=== PATIENT | female | born 1960 | race Caucasian/White ===

== ENCOUNTER → 2017-01-26 | Outpatient (CLI) | payer MEDICAID ==
--- NOTE | 2017-01-26 13:04 | RADIOLOGY REPORT (SQ) ---
EXAM DESCRIPTION: CERV SP 6 OR MORE COMPLETED DATE/TIME: 01/26/2017 11:07 am REASON FOR STUDY: CERVICALGIA COMPARISON: None. NUMBER OF VIEWS: Seven views. TECHNIQUE: AP, lateral, obliques, flexion, extension, and odontoid radiographic images acquired of t he cervical spine. LIMITATIONS: None. FINDINGS: MINERALIZATION: Normal. ALIGNMENT: Anatomic. FLEXION/EXTENSION: No instability. VERTEBRAE: Vertebral bodies of normal height. DISCS: There is mild anterior osteophyte formation at C4-5, and bulky anterior osteophyte formation a t C5-6 and C6-7. Mild C5-6 and C6-7 disc space loss of height. FORAMINA: No significant foraminal narrowing. Mild left-sided facet arthropathy at C7-T1. LATERAL AND POSTERIOR ELEMENTS: Facets, lateral masses, and spinous processes without significant fin dings. HARDWARE: None in the spine. SOFT TISSUES: No masses or calcifications. Lung apices clear. OTHER: No other significant finding. IMPRESSION: Mild degenerative disc changes without bony central or foraminal stenosis NO INSTABILITY ON FLEXION/EXTENSION. TECHNICAL DOCUMENTATION: JOB ID: [id number] [email or web address]- All Rights Reserved
== END ==
LOC: RAD 10:36
PROVIDERS: ATTEND Physician Assistant
DX: M54.2 Cervicalgia (principal)
CPT/HCPCS: 72050

== ENCOUNTER → 2017-04-07 | Outpatient (CLI) | payer MEDICAID ==
--- NOTE | 2017-04-07 11:26 | RADIOLOGY REPORT (SQ) ---
"EXAM DESCRIPTION: MRI CERVICAL SPINE WITHOUT COMPLETED DATE/TIME: 04/07/2017 9:15 am REASON FOR STUDY: CERVICALGIA M54.2 CERVICALGIA COMPARISON: Cervical spine plain films 01/26/2017 TECHNIQUE: Sagittal and Axial imaging includes T1, T2, STIR and gradient echo sequences. LIMITATIONS: None. FINDINGS: ALIGNMENT: Normal. VERTEBRAE: Intact. BONE MARROW: Normal. No marrow replacement or reactive changes. DISCS: Diffuse decreased T2 weighted intervertebral disc signal with mild disc space loss of height a t C4-5, C5-6, and C6-7 HARDWARE: None in the spine. CORD AND BASE OF BRAIN: Normal in size and signal intensity. SOFT TISSUES: No soft tissue masses. C1-C2: No significant spinal stenosis. C2-C3: No significant spinal stenosis or exit foraminal stenosis. C3-C4: No significant spinal stenosis or exit foraminal stenosis. C4-C5: No significant spinal stenosis or exit foraminal stenosis. C5-C6: No significant spinal stenosis or exit foraminal stenosis. C6-C7: No significant central stenosis or right foraminal narrowing. Mild left foraminal narrowing f rom facet and uncovertebral hypertrophy. C7-T1: No significant spinal stenosis or exit foraminal stenosis. UPPER THORACIC: Incompletely imaged. No significant spinal stenosis or exit foraminal stenosis. OTHER: No other significant finding. IMPRESSION: Mild degenerative disc changes. No high-grade central or foraminal encroachment. TECHNICAL DOCUMENTATION: JOB ID: [id number] [employer] | [employer]- All Rights Reserved"
== END ==
LOC: RAD 08:28
PROVIDERS: ATTEND Physician Assistant
DX: M54.2 Cervicalgia (principal); M47.892 Other spondylosis, cervical region
CPT/HCPCS: 72141

== ENCOUNTER → 2017-08-23 | Outpatient (CLI) | payer MEDICAID ==
--- NOTE | 2017-08-23 10:17 | WOMENS IMAGING REPORT ---
EXAM DESCRIPTION: BILAT SCREENING MAMMO W/CAD COMPLETED DATE/TIME: 08/23/2017 9:50 am REASON FOR STUDY: ROUTINE SCREENING; Z12.31 Z12.31 ENCNTR SCREEN MAMMOGRAM FOR MALIGNANT NEOPLASM O F KEARA COMPARISON: None. TECHNIQUE: Standard craniocaudal and mediolateral oblique views of each breast recorded using [place] l acquisition. LIMITATIONS: None. FINDINGS: Findings present which are benign by mammographic criteria. No suspicious masses, calcifi cations or architectural distortion. Pertinent benign findings: Benign calcifications. Read with the assistance of CAD. .[facility] - R2 Cenova Version 1.3 .[facility] - R2 Cenova Version 1.3 .[facility] - R2 Cenova Version 2.4 .[facility] [place] Cenova Version 2.4 .[facility] - R2 Health Information Provider Version 9.2 Benign mammographic findings may include one or more of the following: Smooth masses, popcorn/rim/co arse calcifications, asymmetries, post-procedure changes, and lesions with long-standing stability. IMPRESSION: BENIGN MAMMOGRAPHIC FINDINGS. BIRADS 2 BREAST DENSITY: a. The breasts are almost entirely fatty. BIRAD: 2 BENIGN FINDING(S) RECOMMENDATION: ROUTINE SCREENING COMMENT: The patient has been notified of the results by letter per SA requirements. Additional no tification policies are in place for contacting patient with suspicious or incomplete findings. Quality ID #225: The [employer] recommends an annual screening mammogram for women aged 40 years or over. This facility utilizes a reminder system to ensure that all patients receive reminder letters, and/or direct phone calls for appointments. This includes reminders for routine scr eening mammograms, diagnostic mammograms, or other Breast Imaging Interventions when appropriate. Th is patient will be placed in the appropriate reminder system. The [employer] ([employer]) has developed recommendations for screening MRI of the breast s in certain patient populations, to be used in conjunction with mammography. Breast MRI surveillanc e may be appropriate for women with more than 20% lifetime risk of developing breast cancer as deter mined by genetic testing, significant family history of the disease, or history of mantle radiation f or Hodgkins Disease. ACR Practice Guidelines 2008. TECHNICAL DOCUMENTATION: FINDING NUMBER: (1) ASSESSMENT: (1) JOB ID: [id number] [employer]- All Rights Reserved
== END ==
LOC: WI 09:21
PROVIDERS: ATTEND Physician Assistant
DX: Z12.31 Encounter for screening mammogram for malignant neoplasm of breast (principal)
CPT/HCPCS: 77067

== ENCOUNTER → 2017-09-01 | Outpatient (CLI) | payer MEDICAID ==
--- NOTE | 2017-09-01 16:20 | RADIOLOGY REPORT (SQ) ---
EXAM DESCRIPTION: HIP LEFT AP/LATERAL COMPLETED DATE/TIME: 09/01/2017 4:03 pm REASON FOR STUDY: M25.552 PAIN IN LEFT HIP M25.552 PAIN IN LEFT HIP COMPARISON: None. NUMBER OF VIEWS: Two views. TECHNIQUE: AP pelvis and additional frog-leg view of the left hip. LIMITATIONS: None. FINDINGS: MINERALIZATION: Normal. LEFT HIP: No fracture or dislocation. No worrisome bone lesions. No significant joint space narrowi ng. Mild bony spurring RIGHT HIP: No fracture or dislocation. No worrisome bone lesions. No significant joint space narrow ing or bony spurring PUBIS AND ISCHIUM: No fracture. PELVIS: No fracture. SACRUM: No fracture or dislocation. Mild right SI joint sclerosis. LOWER LUMBAR SPINE: Lower lumbar disc space narrowing at L4-5 and L5-S1 SOFT TISSUES: Surgical clips in the pelvis OTHER: No other significant finding. IMPRESSION: No acute fracture or malalignment. Mild left hip joint bony spurring. Right SI joint s clerosis TECHNICAL DOCUMENTATION: JOB ID: [id number] [employer]- All Rights Reserved
== END ==
LOC: RAD 15:45
DX: M25.552 Pain in left hip (principal); M76.9 Unspecified enthesopathy, lower limb, excluding foot

== ENCOUNTER → 2017-10-25 | Outpatient (CLI) | payer MEDICAID ==
--- NOTE | 2017-10-25 15:13 | RADIOLOGY REPORT (SQ) ---
EXAM DESCRIPTION: L SPINE FLEX/EXT ONLY; L SPINE 2 VIEWS COMPLETED DATE/TIME: 10/25/2017 2:38 pm REASON FOR STUDY: LOW BACK PAIN; LOW BACK PAIN M54.5 LOW BACK PAIN M54.2 CERVICALGIA COMPARISON: Lumbar spine films 03/01/2015, 03/31/2016 NUMBER OF VIEWS: AP and lateral lumbar spine films Lumbar flexion and extension lateral films TECHNIQUE: AP and lateral lumbar spine films Lumbar flexion and extension lateral films LIMITATIONS: None. FINDINGS: MINERALIZATION: Normal. SEGMENTATION: Normal. No transitional anatomy. ALIGNMENT: Normal. FLEXION/EXTENSION: No instability. VERTEBRAE: Maintained height. No fracture or worrisome bone lesion. DISCS: Moderate to high-grade disc space loss of height at L4-5 and L5-S1. POSTERIOR ELEMENTS: Pedicles and facets are intact. No pars defect or posterior arch defects. Mild bilateral facet arthropathy at L4-5 and L5-S1 HARDWARE: None in the spine. OTHER: No other significant finding. IMPRESSION: No instability on flexion/extension Disc space loss of height at L4-5 and L5-S1 TECHNICAL DOCUMENTATION: JOB ID: [id number]- All Rights Reserved Reading location - IP/workstation name: [email or web address]
--- NOTE | 2017-10-25 15:13 | RADIOLOGY REPORT (SQ) ---
EXAM DESCRIPTION: L SPINE FLEX/EXT ONLY; L SPINE 2 VIEWS COMPLETED DATE/TIME: 10/25/2017 2:38 pm REASON FOR STUDY: LOW BACK PAIN; LOW BACK PAIN M54.5 LOW BACK PAIN M54.2 CERVICALGIA COMPARISON: Lumbar spine films 03/01/2015, 03/31/2016 NUMBER OF VIEWS: AP and lateral lumbar spine films Lumbar flexion and extension lateral films TECHNIQUE: AP and lateral lumbar spine films Lumbar flexion and extension lateral films LIMITATIONS: None. FINDINGS: MINERALIZATION: Normal. SEGMENTATION: Normal. No transitional anatomy. ALIGNMENT: Normal. FLEXION/EXTENSION: No instability. VERTEBRAE: Maintained height. No fracture or worrisome bone lesion. DISCS: Moderate to high-grade disc space loss of height at L4-5 and L5-S1. POSTERIOR ELEMENTS: Pedicles and facets are intact. No pars defect or posterior arch defects. Mild bilateral facet arthropathy at L4-5 and L5-S1 HARDWARE: None in the spine. OTHER: No other significant finding. IMPRESSION: No instability on flexion/extension Disc space loss of height at L4-5 and L5-S1 TECHNICAL DOCUMENTATION: JOB ID: [id number]- All Rights Reserved Reading location - IP/workstation name: [email or web address]
--- NOTE | 2017-10-25 15:14 | RADIOLOGY REPORT (SQ) ---
EXAM DESCRIPTION: CERV SP 4 OR 5 VIEWS COMPLETED DATE/TIME: 10/25/2017 2:38 pm REASON FOR STUDY: CERVICALGIA COMPARISON: 01/26/2017 TECHNIQUE: 6 views. Lateral views neutral, flexion and extension, swimmer's lateral, AP and odontoi d. LIMITATIONS: None. FINDINGS: There is disc space narrowing and osteophyte formation C5-6 and C6-7. Alignment is anatom ic. No instability with flexion and extension. IMPRESSION: Cervical disc disease. No instability. TECHNICAL DOCUMENTATION: JOB ID: [id number] [employer]- All Rights Reserved Reading location - IP/workstation name: [email or web address]
== END ==
LOC: RAD 14:04
PROVIDERS: ATTEND Physician Assistant
DX: M54.5 Low back pain (principal); M54.2 Cervicalgia
CPT/HCPCS: 72050; 72100; 72120

== ENCOUNTER 2017-11-07 21:47 | Emergency (ER) | payer MEDICAID ==
[2017-11-07 22:41] LABS: ABSOLUTE BASOPHILS # (AUTO) 0.1 10^3/uL (0.0-0.2); ABSOLUTE EOSINOPHILS # (AUTO) 0.1 10^3/uL (0.0-0.6); ABSOLUTE LYMPHOCYTES (AUTO) 5.9 10^3/uL (0.5-4.7); ABSOLUTE MONOCYTES (AUTO) 1.4 10^3/uL (0.1-1.4); ABSOLUTE NEUT (AUTO) 5.7 10^3/uL (1.7-8.2); BASOPHILS % (AUTO) 0.9 % (0-2); EOSINOPHILS % (AUTO) 0.9 % (0-6); HEMATOCRIT 43.4 % (36.0-47.0); HEMOGLOBIN 14.6 g/dL (12.0-15.5); LYMPHOCYTES % (AUTO) 44.5 % (13-45); MEAN CORPUSCULAR HEMOGLOBIN 32.1 pg (27.0-33.4); MEAN CORPUSCULAR HGB CONC 33.7 g/dL (32.0-36.0); MEAN CORPUSCULAR VOLUME 95 fl (80-97); MONOCYTES % (AUTO) 10.6 % (3-13); PLATELET COUNT 219 10^3/uL (150-450); RED BLOOD COUNT 4.55 10^6/uL (3.72-5.28); RED CELL DISTRIBUTION WIDTH 14.6 % (11.5-14.0); SEGMENTED NEUTROPHILS % (AUTO) 43.1 % (42-78); TOTAL CELLS COUNTED % (AUTO) 100 %; WHITE BLOOD COUNT 13.2 10^3/uL (4.0-10.5)
--- NOTE | 2017-11-07 22:58 | ER Document Report ---
ED GI/ - General Chief Complaint: Abdominal Pain Stated Complaint: ABDOMINAL PAIN Time Seen by Provider: 11/07/17 22:54 Mode of Arrival: Ambulatory Information source: Patient Notes: History of present illness-57 years old female had a cholecystectomy, with a long scar in the right upper quadrant. Last 2 days she noted some bulging and numbness and pain on and off. Therefore concerned and came to the ED. No nausea vomiting diarrhea denies any fever chills or other constitutional symptoms. REVIEW OF SYSTEMS: CONSTITUTIONAL : Denies fever, chills, or sweats. Denies recent illness. EENT: Denies eye, ear, throat, or mouth pain or symptoms. Denies nasal or sinus congestion or discharge. Denies throat, tongue, or mouth swelling or difficulty swallowing. CARDIOVASCULAR: Denies chest pain. Denies palpitations or racing or irregular heart beat. Denies ankle edema. RESPIRATORY: Denies cough, cold, or chest congestion. Denies shortness of breath, difficulty breathing, or wheezing. GASTROINTESTINAL: Denies abdominal pain or distention. Denies nausea, vomiting , or diarrhea. Denies blood in vomitus, stools, or per rectum. Denies black, tarry stools. Denies constipation. GENITOURINARY: Denies difficulty urinating, painful urination, burning, frequency, blood in urine, or discharge. FEMALE GENITOURINARY: Denies vaginal bleeding, heavy or abnormal periods, irregular periods. Denies vaginal discharge or odor. MUSCULOSKELETAL: Denies back or neck pain or stiffness. Denies joint pain or swelling. SKIN: Denies rash, lesions or sores. HEMATOLOGIC : Denies easy bruising or bleeding. LYMPHATIC: Denies swollen, enlarged glands. NEUROLOGICAL: Denies confusion or altered mental status. Denies passing out or loss of consciousness. Denies dizziness or lightheadedness. Denies headache. Denies weakness or paralysis or loss of use of either side. Denies problems with gait or speech. Denies sensory loss, numbness, or tingling. Denies seizures. PSYCHIATRIC: Denies anxiety or stress. Denies depression, suicidal ideation, or homicidal ideation. ALL OTHER SYSTEMS REVIEWED AND NEGATIVE. PHYSICAL EXAMINATION: GENERAL: Well-appearing, well-nourished and in no acute distress. Obese HEAD: Atraumatic, normocephalic. EYES: Pupils equal round and reactive to light, extraocular movements intact, conjunctiva are normal. ENT: Nares patent, oropharynx clear without exudates. Moist mucous membranes. NECK: Normal range of motion, supple without lymphadenopathy LUNGS: Breath sounds clear to auscultation bilaterally and equal. No wheezes rales or rhonchi. HEART: Regular rate and rhythm without murmurs ABDOMEN: Soft, right upper quadrant bleeding along scar noted, about this, slight bulging noted. Which is tender, and also a bulging mass on coughing. Abdomen. No guarding, no rebound. No masses appreciated. Female : deferred Musculoskeletal: Normal range of motion, no pitting or edema. No cyanosis. NEUROLOGICAL: Cranial nerves grossly intact. Normal speech, normal gait. Normal sensory, motor exams PSYCH: Normal mood, normal affect. SKIN: Warm, Dry, normal turgor, no rashes or lesions noted. Dictation was performed using [employer] voice recognition software TRAVEL OUTSIDE OF THE [place] IN LAST 30 DAYS: No - HPI Patient complains to provider of: Abdominal pain Onset: Just prior to arrival Timing/Duration: Gradual Severity at maximum: Moderate Severity in ED: Moderate Pain Level: 3 - Related Data Allergies/Adverse Reactions: No Known Allergies Allergy (Unverified 08/20/14 19:51) Past Medical History - General Information source: Patient - Social History Smoking Status: Former Smoker Cigarette use (# per day): No Chew tobacco use (# tins/day): No Smoking Education Provided: No Frequency of alcohol use: Rare Drug Abuse: None Family History: Reviewed & Not Pertinent Musculoskeltal Medical History: Reports Hx Arthritis Past Surgical History: Reports: Hx Abdominal Surgery, Hx Gynecologic Surgery, Hx Orthopedic Surgery - Immunizations Immunizations up to date: Yes Hx Diphtheria, Pertussis, Tetanus Vaccination: No Review of Systems - Review of Systems Notes: As per history of complain Physical Exam - Vital signs Vitals: Temp Pulse Resp BP Pulse Ox 98.3 F 94 20 112/70 95 11/07/17 21:55 11/07/17 21:55 11/07/17 21:55 11/07/17 21:55 11/07/17 21:55 Course - Re-evaluation Re-evalutation: 11/08/17 01:02 Patient has nausea for which Zofran was given. Her lab reports were explained to as well as CT chest x-ray - Vital Signs Vital signs: Temp Pulse Resp BP Pulse Ox 98.3 F 94 20 112/70 95 11/07/17 21:55 11/07/17 21:55 11/07/17 21:55 11/07/17 21:55 11/07/17 21:55 - Laboratory Result Diagrams: 11/07/17 22:20 11/07/17 22:22 Laboratory results interpreted by me: 11/07/17 22:20 WBC 13.2 H RDW 14.6 H Absolute Lymphocytes 5.9 H - Diagnostic Test Radiology reviewed: Reports reviewed - CT of the abdomen pelvis came back normal. reported by radiologist chest x-ray unremarkable reported by radiologist Discharge - Discharge Clinical Impression: Abdominal pain Qualifiers: Abdominal location: right upper quadrant Qualified Code(s): R10.11 - Right upper quadrant pain Incisional hernia Qualifiers: Obstruction and gangrene presence: without obstruction or gangrene Qualified Code(s): K43.2 - Incisional hernia without obstruction or gangrene; K43.91 - Incisional hernia, without obstruction or gangrene Condition: Fair Disposition: HOME, SELF-CARE Instructions: Abdominal Pain ([facility]), Hernia ([facility]) Prescriptions: Hydrocodone/Acetaminophen [Vicodin 5-300 mg Tablet] 1 - 2 tab PO ASDIR PRN #15 tab PRN Reason: Ondansetron [Zofran Odt] 4 mg PO TID #14 tab.racheal
[2017-11-07 23:00] LABS: ALANINE AMINOTRANSFERASE 38 U/L (9-52); ALBUMIN 4.3 g/dL (3.5-5.0); ALKALINE PHOSPHATASE 57 U/L (38-126); ANION GAP 12 (5-19); ASPARTATE AMINO TRANSFERASE 34 U/L (14-36); BILIRUBIN,DIRECT 0.1 mg/dL (0.0-0.4); BILIRUBIN,TOTAL 0.2 mg/dL (0.2-1.3); BLOOD UREA NITROGEN 13 mg/dL (7-20); CALCIUM 9.2 mg/dL (8.4-10.2); CARBON DIOXIDE 27 mmol/L (22-30); CHLORIDE 105 mmol/L (98-107); GLUCOSE 100 mg/dL (75-110); LIPASE 78.7 U/L (23-300); POTASSIUM 3.8 mmol/L (3.6-5.0); SODIUM 143.8 mmol/L (137-145); TOTAL PROTEIN 6.8 g/dL (6.3-8.2)
--- NOTE | 2017-11-07 23:07 | RADIOLOGY REPORT (SQ) ---
EXAM DESCRIPTION: CHEST 2 VIEWS CLINICAL HISTORY: 57 years Female, epigastric pain COMPARISON: CT 12.8.16 NUMBER OF VIEWS/TECHNIQUE: 2, PA and Lateral LIMITATIONS: None. FINDINGS: Normal lung volume. Clear parenchyma. Prominent interstitium. Normal cardiac silhouette. Intact bony thorax. IMPRESSION: No acute cardiopulmonary findings.
--- NOTE | 2017-11-08 00:54 | RADIOLOGY REPORT (SQ) ---
EXAM DESCRIPTION: CT ABD/PELVIS WITH IV ONLY CLINICAL HISTORY: 57 years Female, Abdominal pain/right upper quadrant hernia COMPARISON: None. TECHNIQUE: IV contrast. Coronal and sagittal reformat. This exam was performed according to our departmental dose-optimization program, which includes automated exposure control, adjustment of the mA and/or kV according to patient size and/or use of iterative reconstruction technique. FINDINGS: No acute findings. No free fluid. Pelvic clips. Moderate hepatic steatosis. Small bilateral likely benign renal cysts. 0.2 cm degenerative L5 retrolisthesis. Gallbladder and appendix are surgically absent. Small retained fluid in the right colon suggests nonspecific malabsorption. Inferior thorax, liver, pancreas, spleen, adrenals, renal system, gastrointestinal tract, pelvic organs, lymphatics, vasculature, and musculoskeleton appear otherwise unremarkable. IMPRESSION: No acute findings.
[2017-11-08] MEDS ORDERED: ONDANSETRON ODT 4 MG TAB (6 TAB/ER DISP) PO PRN (00:58)
[2017-11-08 01:36] VITALS: BP 132/75
== END 2017-11-08 01:33 | disposition home or self-care (01) ==
LOC: ER 21:47
DX: K43.2 Incisional hernia without obstruction or gangrene (principal); R10.11 Right upper quadrant pain; R20.0 Anesthesia of skin; R11.0 Nausea; Z90.49 Acquired absence of other specified parts of digestive tract
CPT/HCPCS: 36415; 71046; 74177; 80053; 83690; 85025; 99284

== ENCOUNTER 2017-12-01 21:52 | Emergency (ER) | payer MEDICAID ==
[2017-12-01 23:00] LABS: ABSOLUTE BASOPHILS # (AUTO) 0.1 10^3/uL (0.0-0.2); ABSOLUTE EOSINOPHILS # (AUTO) 0.1 10^3/uL (0.0-0.6); ABSOLUTE LYMPHOCYTES (AUTO) 5.7 10^3/uL (0.5-4.7); ABSOLUTE MONOCYTES (AUTO) 1.2 10^3/uL (0.1-1.4); ABSOLUTE NEUT (AUTO) 6.7 10^3/uL (1.7-8.2); BASOPHILS % (AUTO) 0.9 % (0-2); EOSINOPHILS % (AUTO) 0.6 % (0-6); HEMOGLOBIN 14.5 g/dL (12.0-15.5); LYMPHOCYTES % (AUTO) 41.4 % (13-45); MEAN CORPUSCULAR HEMOGLOBIN 33.1 pg (27.0-33.4); MEAN CORPUSCULAR HGB CONC 34.4 g/dL (32.0-36.0); MEAN CORPUSCULAR VOLUME 96 fl (80-97); MONOCYTES % (AUTO) 8.5 % (3-13); PLATELET COUNT 191 10^3/uL (150-450); RED BLOOD COUNT 4.38 10^6/uL (3.72-5.28); RED CELL DISTRIBUTION WIDTH 14.3 % (11.5-14.0); SEGMENTED NEUTROPHILS % (AUTO) 48.6 % (42-78); TOTAL CELLS COUNTED % (AUTO) 100 %; WHITE BLOOD COUNT 13.8 10^3/uL (4.0-10.5)
[2017-12-01 23:16] LABS: ALANINE AMINOTRANSFERASE 29 U/L (9-52); ALBUMIN 4.2 g/dL (3.5-5.0); ALKALINE PHOSPHATASE 63 U/L (38-126); ANION GAP 11 (5-19); ASPARTATE AMINO TRANSFERASE 23 U/L (14-36); BILIRUBIN,DIRECT 0.2 mg/dL (0.0-0.4); BILIRUBIN,TOTAL 0.2 mg/dL (0.2-1.3); BLOOD UREA NITROGEN 12 mg/dL (7-20); CALCIUM 9.3 mg/dL (8.4-10.2); CARBON DIOXIDE 27 mmol/L (22-30); CHLORIDE 104 mmol/L (98-107); GLUCOSE 87 mg/dL (75-110); LIPASE 89.8 U/L (23-300); POTASSIUM 3.9 mmol/L (3.6-5.0); SODIUM 142.1 mmol/L (137-145); TOTAL PROTEIN 6.9 g/dL (6.3-8.2)
[2017-12-01] MEDS ORDERED: KETOROLAC TROMETHAMINE INJ/PF 30 MG/1 ML SDV IV ONE (23:21)
[2017-12-01] MEDS ORDERED: ACETAMINOPHEN 325 MG TABLET PO ONE (23:21)
[2017-12-01] MEDS ORDERED: LIDOCAINE 5% (700 MG) TRANSDERMAL ADH..PATCH TP ONE (23:21)
--- NOTE | 2017-12-01 23:25 | ER Document Report ---
ED General - General Chief Complaint: Abdominal Pain Stated Complaint: FLANK PAIN Time Seen by Provider: 12/01/17 22:39 Notes: Patient is a 57-year-old female who presents with right lower rib pain for the past 2-3 weeks. Patient states that this started after she fell into a dehumidifier to 3 weeks ago. She states that initially she thought her ribs were simply "bruised" as she had a dull, throbbing, constant pain worsened by movement, breathing and coughing. She does state that she became concerned when the pain has failed to improve and seems to perhaps even gotten worse. She has been trying ibuprofen with minimal to no improvement of the pain. She states that it continues to be exacerbated by movement and breathing. She denies any history of similar symptoms in the past. She has not seen her primary doctor regarding today's concerns. She denies any shortness of breath, hemoptysis, focal abdominal pain, or any other additional symptoms. She is status post cholecystectomy. She has not noted any rash. TRAVEL OUTSIDE OF THE [place] IN LAST 30 DAYS: No - Related Data Allergies/Adverse Reactions: No Known Allergies Allergy (Unverified 08/20/14 19:51) Past Medical History - General Information source: Patient - Social History Smoking Status: Never Smoker Frequency of alcohol use: None Drug Abuse: None Lives with: Family Family History: Reviewed & Not Pertinent Patient has suicidal ideation: No Patient has homicidal ideation: No Renal/ Medical History: Denies: Hx Peritoneal Dialysis Musculoskeltal Medical History: Reports Hx Arthritis Past Surgical History: Reports: Hx Abdominal Surgery, Hx Gynecologic Surgery, Hx Orthopedic Surgery - Immunizations Immunizations up to date: Yes Hx Diphtheria, Pertussis, Tetanus Vaccination: No Review of Systems - Review of Systems Notes: Constitutional: Negative for fever. HENT: Negative for sore throat. Eyes: Negative for visual changes. Cardiovascular: Negative for chest pain. Respiratory: Negative for shortness of breath. Gastrointestinal: Negative for abdominal pain, vomiting or diarrhea. Genitourinary: Negative for dysuria. Musculoskeletal: Positive for right lower rib pain and chest wall pain Skin: Negative for rash. Neurological: Negative for headaches, weakness or numbness. 10 point ROS negative except as marked above and in HPI. Physical Exam - Vital signs Vitals: Temp Pulse Resp BP Pulse Ox 98.8 F 94 18 129/76 H 97 12/01/17 22:00 12/01/17 22:00 12/01/17 22:00 12/01/17 22:00 12/01/17 22:00 Interpretation: Normal Notes: PHYSICAL EXAMINATION: GENERAL: Well-appearing, well-nourished and in no acute distress. HEAD: Atraumatic, normocephalic. EYES: Pupils equal round and reactive to light, extraocular movements intact, sclera anicteric, conjunctiva are normal. ENT: nares patent, oropharynx clear without exudates. Moist mucous membranes. NECK: Normal range of motion, supple without lymphadenopathy LUNGS: Breath sounds clear to auscultation bilaterally and equal. No wheezes rales or rhonchi. HEART: Regular rate and rhythm without murmurs Chest wall: Pain on palpation of the right lower ribs. ABDOMEN: Soft, nontender, normoactive bowel sounds. No guarding, no rebound. No masses appreciated. EXTREMITIES: Normal range of motion, no pitting or edema. No cyanosis. NEUROLOGICAL: No focal neurological deficits. Moves all extremities spontaneously and on command. PSYCH: Normal mood, normal affect. SKIN: Warm, Dry, normal turgor, no rashes or lesions noted. Course - Re-evaluation Re-evalutation: 12/01/17 23:23 Patient presents after falling onto their ribs, complaining of focal pain to the affected area. Patient did hit the area approximately 2 weeks ago and has been having pain since that time. No tachypnea or hypoxemia at time of arrival. Pain controlled here in the emergency department. Chest x-ray without evidence of acute fracture, pneumothorax or pulmonary contusion. Labs unremarkable. There is no focal abdominal pain to suggest intra-abdominal pathology and patient is postcholecystectomy from quite some time ago. Patient has been having symptoms for over 2 weeks and I do not suspect that this would be an initial presentation of herpes zoster. At this time will discharge with return precautions and follow-up recommendations. Verbal discharge instructions given at the bedside and opportunity for questions given. Medication warnings reviewed. Patient is in agreement with this plan and has verbalized understanding of return precautions and the need for primary care follow-up in the next 24-72 hours. - Vital Signs Vital signs: Temp Pulse Resp BP Pulse Ox 98.3 F 73 17 122/71 98 12/02/17 00:44 12/02/17 00:44 12/02/17 00:44 12/02/17 00:44 12/02/17 00:44 - Laboratory Result Diagrams: 12/01/17 22:52 12/01/17 22:52 Laboratory results interpreted by me: 12/01/17 12/01/17 22:52 23:40 WBC 13.8 H RDW 14.3 H Absolute Lymphocytes 5.7 H Urine Blood MODERATE H Urine Urobilinogen 2.0 H - Diagnostic Test Radiology reviewed: Image reviewed, Reports reviewed Radiology results interpreted by me: 12/02/17 03:36 Chest x-ray: No acute infiltrate or fractures. Discharge - Discharge Clinical Impression: Right sided abdominal pain, Rib pain on right side Condition: Good Disposition: HOME, SELF-CARE Additional Instructions: Your chest wall pain is due to bruising of your ribs. This pain can last for up to 6 weeks. It is very important that you continue to take purposeful deep breaths. For your pain: Continue to take ibuprofen 600 mg every 6 hours or Tylenol 1000 mg every 6 hours. Apply local lidocaine to the area per bottle instructions. There is a product sold [id number] called "Aspercreme with lidocaine" that you can use for this purpose. Please follow-up with her primary care doctor in the next 2-3 days. Return to the emergency department immediately if you develop worsening shortness of breath, increased pain, begin coughing blood, pass out, or have any other symptoms that are worrisome to you. Prescriptions: Cyclobenzaprine HCl [Flexeril 10 mg Tablet] 10 mg PO QHS PRN #15 tablet PRN Reason: Referrals: CAYETANO ESPINOSA PA-C [Primary Care Provider] - Follow up as needed
--- NOTE | 2017-12-02 00:01 | RADIOLOGY REPORT (SQ) ---
EXAM DESCRIPTION: CHEST 2 VIEWS COMPLETED DATE/TIME: 12/01/2017 11:37 pm REASON FOR STUDY: right lower rib pain COMPARISON: 11/07/2017 EXAM PARAMETERS: NUMBER OF VIEWS: two views TECHNIQUE: Digital Frontal and Lateral radiographic views of the chest acquired. RADIATION DOSE: NA LIMITATIONS: none FINDINGS: LUNGS AND PLEURA: No acute opacities, masses or pneumothorax. No pleural effusion. MEDIASTINUM AND HILAR STRUCTURES: No masses or contour abnormalities. HEART AND VASCULAR STRUCTURES: Heart normal size. No evidence for failure. BONES: No acute findings. HARDWARE: None in the chest. OTHER: No other significant finding. IMPRESSION: NO ACUTE RADIOGRAPHIC FINDING IN THE CHEST. TECHNICAL DOCUMENTATION: JOB ID: [id number] 2010 [email or web address]- All Rights Reserved Reading location - IP/workstation name: [email or web address]
[2017-12-02 00:23] LABS: APPEARANCE,URINE SLIGHTLY-CLOUDY; BILIRUBIN,URINE NEGATIVE (NEGATIVE); COLOR,URINE YELLOW; GLUCOSE, URINE NEGATIVE (NEGATIVE); KETONES,URINE NEGATIVE (NEGATIVE); LEUKOCYTE ESTERASE,URINE NEGATIVE (NEGATIVE); NITRITE,URINE NEGATIVE (NEGATIVE); PROTEIN,URINE NEGATIVE (NEGATIVE)
[2017-12-02 00:45] VITALS: BP 122/71
== END 2017-12-02 00:45 | disposition home or self-care (01) ==
LOC: ER 21:52
DX: R07.81 Pleurodynia (principal); R10.9 Unspecified abdominal pain; W19.XXXA Unspecified fall, initial encounter; Z90.49 Acquired absence of other specified parts of digestive tract
CPT/HCPCS: 99284; 96374; 36415; 83690; 85025; 80053; 81001; 71046; J3490 ×2; J1885

== ENCOUNTER → 2018-09-12 | Outpatient (CLI) | payer MEDICAID ==
[2018-09-12 10:47] LABS: ABSOLUTE BASOPHILS # (AUTO) 0.1 10^3/uL (0.0-0.2); ABSOLUTE EOSINOPHILS # (AUTO) 0.1 10^3/uL (0.0-0.6); ABSOLUTE LYMPHOCYTES (AUTO) 4.3 10^3/uL (0.5-4.7); ABSOLUTE MONOCYTES (AUTO) 1.4 10^3/uL (0.1-1.4); BASOPHILS % (AUTO) 0.7 % (0-2); EOSINOPHILS % (AUTO) 0.5 % (0-6); HEMATOCRIT 42.7 % (36.0-47.0); HEMOGLOBIN 15.1 g/dL (12.0-15.5); LYMPHOCYTES % (AUTO) 27.2 % (13-45); MEAN CORPUSCULAR HEMOGLOBIN 32.7 pg (27.0-33.4); MEAN CORPUSCULAR HGB CONC 35.3 g/dL (32.0-36.0); MEAN CORPUSCULAR VOLUME 93 fl (80-97); MONOCYTES % (AUTO) 9.1 % (3-13); PLATELET COUNT 213 10^3/uL (150-450); RED BLOOD COUNT 4.61 10^6/uL (3.72-5.28); RED CELL DISTRIBUTION WIDTH 13.9 % (11.5-14.0); SEGMENTED NEUTROPHILS % (AUTO) 62.5 % (42-78); TOTAL CELLS COUNTED % (AUTO) 100 %
[2018-09-12 11:03] LABS: ALANINE AMINOTRANSFERASE 15 U/L (9-52); ALBUMIN 4.3 g/dL (3.5-5.0); ALKALINE PHOSPHATASE 82 U/L (38-126); ANION GAP 10 (5-19); ASPARTATE AMINO TRANSFERASE 11 U/L (14-36); BLOOD UREA NITROGEN 17 mg/dL (7-20); CALCIUM 9.2 mg/dL (8.4-10.2); CARBON DIOXIDE 28 mmol/L (22-30); CHLORIDE 105 mmol/L (98-107); GLUCOSE 100 mg/dL (75-110); POTASSIUM 4.3 mmol/L (3.6-5.0); SODIUM 143.2 mmol/L (137-145)
[2018-09-12 11:04] LABS: BILIRUBIN,DIRECT 0.1 mg/dL (0.0-0.4); BILIRUBIN,TOTAL 0.2 mg/dL (0.2-1.3); CHOLESTEROL 190.63 mg/dL (0-200); TOTAL PROTEIN 6.6 g/dL (6.3-8.2); TRIGLYCERIDES 159 mg/dL (<150)
[2018-09-12 11:14] LABS: DIRECT LDL 129 mg/dL (<100)
[2018-09-12 11:16] LABS: VLDL CHOLESTEROL 31.8 mg/dL (10-31)
== END ==
LOC: OD 09:46
PROVIDERS: ATTEND Nurse Practitioner Psychiatric/Mental Health
DX: F31.2 Bipolar disorder, current episode manic severe with psychotic features (principal)
CPT/HCPCS: 36415; 80053; 80061; 80164; 84443; 85025

== ENCOUNTER → 2018-10-17 | Outpatient (CLI) | payer MEDICAID ==
--- NOTE | 2018-10-17 15:47 | RADIOLOGY REPORT (SQ) ---
EXAM DESCRIPTION: CHEST 2 VIEWS COMPLETED DATE/TIME: 10/17/2018 3:30 pm REASON FOR STUDY: R05 COUGH COMPARISON: 12/01/2017 EXAM PARAMETERS: NUMBER OF VIEWS: two views TECHNIQUE: Digital Frontal and Lateral radiographic views of the chest acquired. RADIATION DOSE: NA LIMITATIONS: none FINDINGS: LUNGS AND PLEURA: There is prominence of interstitial markings bilaterally. This is sligh tly increased when compared to prior study. This may represent chronic interstitial lung disease. S uperimposed interstitial pneumonitis or edema cannot be excluded. No pleural effusions. No pneumoth orax. MEDIASTINUM AND HILAR STRUCTURES: No masses or contour abnormalities. HEART AND VASCULAR STRUCTURES: Heart normal size. No evidence for failure. BONES: No acute findings. HARDWARE: None in the chest. OTHER: No other significant finding. IMPRESSION: Progression of bilateral interstitial airspace disease as described. Differential inclu yazmin progression of interstitial lung disease, superimposed interstitial pneumonitis or congestion. TECHNICAL DOCUMENTATION: JOB ID: [id number] [employer]- All Rights Reserved Reading location - IP/workstation name: [email or web address]
== END ==
LOC: RAD 15:15
PROVIDERS: ATTEND Physician Assistant
DX: J98.4 Other disorders of lung (principal); R05 Cough
CPT/HCPCS: 71046

== ENCOUNTER → 2018-11-28 | Outpatient (CLI) | payer MEDICAID ==
--- NOTE | 2018-11-28 13:36 | RADIOLOGY REPORT (SQ) ---
EXAM DESCRIPTION: CT CHEST WITHOUT COMPLETED DATE/TIME: 11/28/2018 1:15 pm REASON FOR STUDY: COUGH (R05) R05 COUGH COMPARISON: 07/07/2016 TECHNIQUE: CT scan performed of the chest without intravenous contrast. Images reviewed with lung, soft tissue and bone windows. Reconstructed coronal and sagittal MPR images reviewed. All images st ored on PACS. All CT scanners at this facility use dose modulation, iterative reconstruction, and/or weight based d osing when appropriate to reduce radiation dose to as low as reasonably achievable (ALARA). [facility]: Dose Right [facility]: CareDose [facility]: Dose Right [facility]: Teradose 4D [facility]: [employer] RADIATION DOSE: CT Rad equipment meets quality standard of care and radiation dose reduction techniq ues were employed. CTDIvol: 12.1 mGy. DLP: 427 mGy-cm. mGy. LIMITATIONS: No technical limitations. FINDINGS: LUNGS AND PLEURA: Mild centrilobular and paraseptal emphysematous changes. Mild pleural/ parenchymal scarring on the right once again. No pulmonary mass or infiltrate. No pleural effusion. HILAR AND MEDIASTINAL STRUCTURES: There are multiple small, generally subcentimeter mediastinal nodes . No significant hilar adenopathy. HEART AND VASCULAR STRUCTURES: No aneurysm. No pericardial effusion. UPPER ABDOMEN: No significant findings. Limited exam. THYROID AND OTHER SOFT TISSUES: No masses. No adenopathy. 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 A developmental finding. HARDWARE: None in the chest. OTHER: No other significant findings. IMPRESSION: Chronic emphysematous changes mild stable pleural/ parenchymal scarring. No acute findi ngs in the chest. Osseous findings as described. TECHNICAL DOCUMENTATION: JOB ID: [id number] Quality ID # [id number]: Final reports with documentation of one or more dose reduction techniques (e.g., Au tomated exposure control, adjustment of the mA and/or kV according to patient size, use of iterative reconstruction technique) 2010 [employer]- All Rights Reserved Reading location - IP/workstation name: [email or web address]
== END ==
LOC: RAD 13:00
PROVIDERS: ATTEND Physician Assistant
DX: R05 Cough (principal)
CPT/HCPCS: 71250

== ENCOUNTER 2019-04-27 14:31 | Emergency (ER) | payer MEDICAID ==
[2019-04-27 14:41] VITALS: BP 135/79
[2019-04-27] MEDS ORDERED: IBUPROFEN 800 MG TABLET PO ONE (15:32)
--- NOTE | 2019-04-27 15:34 | ER Document Report ---
ED Medical Screen (RME) - General Chief Complaint: Hand Pain Stated Complaint: HAND PAIN Time Seen by Provider: 04/27/19 15:32 Primary Care Provider: CAYETANO ESPINOSA PA-C [Primary Care Provider] - Follow up as needed Information source: Patient Notes: Patient presents complaining of left hand pain worse to the left thumb. Patient is left-hand dominant. Patient denies any known injury. Patient reports distant history of carpal tunnel repair involving wrist of left hand. I have greeted and performed a rapid initial assessment of this patient. A comprehensive ED assessment and evaluation of the patient, analysis of test results and completion of the medical decision making process will be conducted by additional ED providers. TRAVEL OUTSIDE OF THE [place] IN LAST 30 DAYS: No - Related Data Allergies/Adverse Reactions: No Known Allergies Allergy (Verified 04/27/19 15:30) Past Medical History Renal/ Medical History: Denies: Hx Peritoneal Dialysis Musculoskeltal Medical History: Reports Hx Arthritis Past Surgical History: Reports: Hx Abdominal Surgery, Hx Gynecologic Surgery, Hx Orthopedic Surgery - Immunizations Immunizations up to date: Yes Hx Diphtheria, Pertussis, Tetanus Vaccination: No Physical Exam - Vital signs Vitals: Temp Pulse Resp BP Pulse Ox 98.4 F 111 H 18 135/79 H 95 04/27/19 14:40 04/27/19 14:40 04/27/19 14:40 04/27/19 14:40 04/27/19 14:40 - General Notes: Left thumb and hand tenderness, normal skin color and temperature overlying joint Course - Vital Signs Vital signs: Temp Pulse Resp BP Pulse Ox 98.4 F 111 H 18 135/79 H 95 04/27/19 14:40 04/27/19 14:40 04/27/19 14:40 04/27/19 14:40 04/27/19 14:40 Doctor's Discharge - Discharge Referrals: CAYETANO ESPINOSA PA-C [Primary Care Provider] - Follow up as needed
--- NOTE | 2019-04-27 16:29 | RADIOLOGY REPORT (SQ) ---
EXAM DESCRIPTION: HAND LEFT 3 VIEWS COMPLETED DATE/TIME: 04/27/2019 4:14 pm REASON FOR STUDY: Left hand pain COMPARISON: None. EXAM PARAMETERS: NUMBER OF VIEWS: Three views. TECHNIQUE: AP, lateral and oblique radiographic images acquired of the left hand. LIMITATIONS: None. FINDINGS: MINERALIZATION: Normal. BONES: No acute fracture or dislocation. No worrisome bone lesions. JOINTS: No effusion. SOFT TISSUES: No significant soft tissue swelling. No radiopaque foreign body. OTHER: No other significant finding. IMPRESSION: NO FRACTURE. TECHNICAL DOCUMENTATION: JOB ID: [id number] [place]-72 2010 [employer]- All Rights Reserved Reading location - IP/workstation name: [email or web address]
--- NOTE | 2019-04-27 18:09 | ER Document Report ---
HPI - HPI Patient complains to provider of: left hand pain Time Seen by Provider: 04/27/19 15:32 Pain Level: 4 Context: 58 yr old female pt, with the listed pmh, here for left thumb and wrist x 2 days. She does do repetitive hand movements daily. She has had a remote carpal tunnel surgery in his hand however that feels different. She is left-handed. No other fall or trauma. Pain is not controlled with Motrin or mobic. No numbness,weakness or tingling. no surgeries on this extremity. otc meds helping some. hasn't sought care until now. no pain anywhere else. pt able to walk. denies intoxication. pain worse with movement and palpation. better with rest. no other fall or trauma or associated sx - CONSTITUTIONAL Constitutional: DENIES: Fever, Chills - EENT EENT: DENIES: Sore Throat, Ear Pain, Eye problems - NEURO Neurology: DENIES: Headache, Weakness, Vision blurred, Dizzinesss / Vertigo - CARDIOVASCULAR Cardiovascular: DENIES: Chest pain - RESPIRATORY Respiratory: DENIES: Trouble Breathing, Coughing - GASTROINTESTINAL Gastrointestinal: DENIES: Abdominal Pain, Black / Bloody Stools - URINARY Urinary: DENIES: Dysuria, Urgency, Frequency - REPRODUCTIVE Reproductive: DENIES: : - MUSCULOSKELETAL Musculoskeletal: REPORTS: Extremity pain - left hand / wrist Past Medical History - General Information source: Patient - Social History Smoking Status: Current Every Day Smoker Family History: Reviewed & Not Pertinent Patient has suicidal ideation: No Patient has homicidal ideation: No Renal/ Medical History: Denies: Hx Peritoneal Dialysis Musculoskeletal Medical History: Reports Hx Arthritis Past Surgical History: Reports: Hx Abdominal Surgery, Hx Gynecologic Surgery, Hx Orthopedic Surgery - Immunizations Immunizations up to date: Yes Hx Diphtheria, Pertussis, Tetanus Vaccination: No Vertical Provider Document - CONSTITUTIONAL Notes: GENERAL_APPEARANCE: alert and oriented x 3, mood and affect wnl, cooperative, mild obvious discomfort. Pleasant, smiling, speaking in full sentences, in no sign of pain or resp distress, easily sitting up VITALS: reviewed, see vital signs table. HEAD: no_swelling\tenderness on the head, normocephalic, atraumatic NECK: supple, no_neck_tenderness. full rom and full strength. no sign of central cord syndrome, meningitis, or spinal cord involvement HEART: RRR LUNGS: CTAB, good air exchange diffusely BACK: no_back_tenderness EXTREMITIES: good pulse in all extremities, affected_area_on_extremity has mild erythema, mild swelling, mild tenderness and no_abrasions\lacerations other than as noted. Full rom and full strength. Normal gait. good hand gerontology aide. brisk cap refill. no other shortening or rotation of the limb or obvious deformities to suggest trauma unless otherwise noted. no other swelling or ttp. Positive Celina test. Negative Tinel and Phalen. positive snuffbox tenderness in the left wrist. SKIN: warm, dry, good_color. no rash. no other grossly visible overlying skin changes to suggest trauma NEURO: cerebellar function intact, motor_intact and sensory_intact in injured_extremity. cranial nerves 2-12 intact - INFECTION CONTROL TRAVEL OUTSIDE OF THE [place] IN LAST 30 DAYS: No Course - Re-evaluation Re-evalutation: 04/27/19 18:35 Pt here for . advised to f/u with pcp in 1-2 days. return for any worsening symptoms. vss. well appearing. satting well on ra. neurononfocal. pt understands and agrees to plan. On reexam, pt improved with tx listed. remained stable. nontoxic. well appearing. pain controlled. tolerating po. requesting to go home. case discussed with ER Attending, , who directed and agrees with plan of care and advised no further workup indicated at this time and pt is stable for dc home with close f/u with pcp/specialist. Documentation achieved through voice recording which may lead to some occasional accidental typographical errors. Extensive efforts have been made to proof read documentation to make sure these are the least as possible. Category Date Time Status HAND LEFT 3 VIEWS [RAD] Stat Exams 04/27/19 15:32 Completed Ibuprofen [Motrin 800 mg Tablet] Med 04/27/19 15:32 Discontinued 800 mg PO NOW ONE - Vital Signs Vital signs: Temp Pulse Resp BP Pulse Ox 98.4 F 98 18 135/79 H 95 04/27/19 14:40 04/27/19 18:03 04/27/19 14:40 04/27/19 14:40 04/27/19 14:40 - Diagnostic Test Radiology reviewed: Image reviewed, Reports reviewed Radiology results interpreted by me: 04/27/19 18:08 Hand X-Ray 04/27/19 15:32 IMPRESSION: NO FRACTURE. Discharge - Discharge Clinical Impression: De Quervain's tenosynovitis, left Condition: Good Disposition: HOME, SELF-CARE Instructions: Tendonitis ([facility]), Arm Pain, Nonspecific ([facility]) Additional Instructions: Follow-up with PCP/Ortho in 1 to 2 days. Return for any worsening symptoms. Wear the splint for the next few days as needed for comfort or until seen by the orthopedist or your primary care doctor. Do not work, drive, operate machinery, or take Tylenol with the pain medication. Take the medication as prescribed. Prescriptions: Hydrocodone/Acetaminophen [Avon 5-325 mg Tablet] 1 tab PO Q6 PRN #12 tablet PRN Reason: For Pain Referrals: ALEJANDRO VEGA MD [ACTIVE STAFF] - Follow up in 3-5 days CAYETANO ESPINOSA PA-C [Primary Care Provider] - Follow up in 3-5 days
[2019-04-27] MEDS ORDERED: HYDROCODONE/ACETAMINOPHEN 5-325 MG TABLET PO ONE (18:36)
== END 2019-04-27 18:44 | disposition home or self-care (01) ==
LOC: ER 14:31
DX: M65.4 Radial styloid tenosynovitis [de Quervain] (principal); M79.642 Pain in left hand; F17.200 Nicotine dependence, unspecified, uncomplicated; Z98.890 Other specified postprocedural states
CPT/HCPCS: 99283; 73130; J3490; L3908-LT

== ENCOUNTER → 2019-07-22 | Outpatient (CLI) | payer MEDICAID ==
--- NOTE | 2019-07-22 12:18 | RADIOLOGY REPORT (SQ) ---
EXAM DESCRIPTION: CT SOFT TISSUE NECK WITH COMPLETED DATE/TIME: 07/22/2019 8:53 am REASON FOR STUDY: K11.8 OTHER DISEASES OF SALIVARY GLANDS K11.8 OTHER DISEASES OF SALIVARY GLANDS COMPARISON: CT chest 11/28/2018, 07/07/2016 Cervical spine plain films 10/25/2017 TECHNIQUE: Post IV contrasted scanning from skull base through lung apices with review of bone, soft tissue and lung windows. Reconstructed coronal and sagittal MPR images reviewed. All images stored on PACS. All CT scanners at this facility use dose modulation, iterative reconstruction, and/or weight based d osing when appropriate to reduce radiation dose to as low as reasonably achievable (ALARA). [facility]: Dose Right [facility]: CareDose [facility]: Dose Right [facility]: Teradose 4D [facility]: [employer] CONTRAST TYPE AND DOSE: contrast/concentration: Isovue 350.00 mg/ml; Total Contrast Delivered: 75.0 ml; Total Saline Delivered: 55.0 ml RENAL FUNCTION: Creatinine 0.7 RADIATION DOSE: 24 mGy . LIMITATIONS: None. FINDINGS: SKULL BASE: Inferior brain parenchyma in the field of view unremarkable. MAJOR SALIVARY GLANDS: Along the left parotid, just dorsal to the left facial vein, a well-circumscri bed hypervascular mass is present measuring 2 cm transverse x 1.5 cm AP x 2.2 cm craniocaudad. This could either represent a an enlarged hypervascular lymph node or a primary parotid mass, and is best shown on axial image 42, coronal image 55, axial image 84. Remainder of the left parotid gland, right parotid gland, submandibular and sublingual glands are oth erwise unremarkable. LYMPHADENOPATHY: No adenopathy. MUCOSAL MASSES OR ASYMMETRY: No mucosal masses or asymmetry. LARYNX/CORDS: No abnormal findings. VASCULAR STRUCTURES: The major vessels are patent. LUNG APICES: Obstructive lung disease BONES: Multilevel mild degenerative disc changes in the cervical spine without high-grade central or bony foraminal stenosis THYROID: Normal size. No masses. PARANASAL SINUSES: Clear. OTHER: No other significant finding. IMPRESSION: 2.2 x 2 x 1.5 cm mass, just dorsal to the left facial vein, along the posterior half of the left parotid gland. This may represent an enlarged abnormal cervical lymph node or a primary par otid tumor. TECHNICAL DOCUMENTATION: JOB ID: [id number] Quality ID # [id number]: Final reports with documentation of one or more dose reduction techniques (e.g., Au tomated exposure control, adjustment of the mA and/or kV according to patient size, use of iterative reconstruction technique) 2010 [employer]- All Rights Reserved Reading location - IP/workstation name: [email or web address]
== END ==
LOC: RAD 08:20
PROVIDERS: ATTEND Otolaryngology
DX: K11.8 Other diseases of salivary glands (principal); J44.9 Chronic obstructive pulmonary disease, unspecified
CPT/HCPCS: 70491

== ENCOUNTER → 2019-08-23 | Day surgery (SDC) | payer MEDICAID ==
--- NOTE | 2019-08-23 15:38 | RADIOLOGY REPORT (SQ) ---
EXAM DESCRIPTION: U/S BX SOFT TISS NECK THORX COMPLETED DATE/TIME: 08/23/2019 2:06 pm REASON FOR STUDY: K11.8 OTHER DISEASES OF SALIVARY GLANDS COMPARISON: None. TECHNIQUE: The procedure, risks, benefits, and alternatives were discussed with the patient in the p reprocedural area, and all questions were answered. Informed consent was obtained verbally and in wri ting. The patient was then brought to the procedural suite, positioned supine on a gurney, and a time-out w as performed. Selected grayscale and color Doppler images of the hypoechoic mass in the left parotid gland were then obtained; based review of these images an appropriate percutaneous access site was s elected. The area around the selected access site was subsequently prepped and draped with 2% chlorhe xidine utilizing standard sterile technique. Then, after the access site was anesthetized with 1% lid ocaine, a 25 gauge needle was advanced into the lesion of interest utilizing sonographic guidance; af ter each pass the sample was submitted to cytopathology for review and in total 3 passes were perform ed. A 17 gauge coaxial needle was then advanced through the skin incision and into the hypoechoic mass u tilizing sonographic guidance. After that, the inner stylet of the coaxial needle was removed and 1 1 8 gauge core sample were obtained of the mass - the samples were collected and submitted to cytopatho logy in formalin. The coaxial needle was then removed and selected grayscale and color Doppler images of the mass were repeated and reviewed ; the images demonstrated no acute biopsy-related complication. The patient tolerated the procedure well with local anesthesia. At the end of the procedure the patient's condition was unchanged from the preprocedural baseline. Documentation of [id number] time the proceduralist spent monitoring the patient: 25 minutes. RADIATION DOSE: None. LIMITATIONS: None. FINDINGS: Integrated into the Technique. IMPRESSION: Successful ultrasound-guided fine-needle aspiration biopsy of the hypoechoic mass within the left parotid gland. TECHNICAL DOCUMENTATION: JOB ID: [id number] [employer]- All Rights Reserved Reading location - IP/workstation name: [email or web address]
== END ==
LOC: RAD 12:05
PROVIDERS: ATTEND Otolaryngology
DX: K11.8 Other diseases of salivary glands (principal)
CPT/HCPCS: 21550; 88173; 88305

== ENCOUNTER 2019-10-09 09:11 | Observation (INO) | payer MEDICAID ==
[2019-10-09] MEDS ORDERED: IPRATROPIUM/ALBUTEROL 0.5-2.5 MG/3 ML AMPUL NEB ONE ×2 (09:26→10:07)
--- NOTE | 2019-10-09 09:30 | ER Document Report ---
ED Medical Screen (RME) - General Chief Complaint: Shortness Of Breath Stated Complaint: DIFFICULTY BREATHING,COUGH Time Seen by Provider: 10/09/19 09:22 Mode of Arrival: Ambulatory Information source: Patient Notes: This 59-year-old female with history of COPD presents to the emergency department with complaints of shortness of breath difficulty breathing productive cough since Monday. Reports it started with a sore throat on Monday. She reports she could not even swallow on Monday but her throat feels better now. Patient has history of smoking but really has not smoked since Monday. Denies fever vomiting diarrhea. Patient is coughing up green sputum. Used her nebulizer 4 times each day since Monday 1 time this morning. O2 sat 92% upon arrival. Patient reports she is extremely short of breath and cannot lay flat. I have greeted and performed a rapid initial assessment of this patient. A comprehensive ED assessment and evaluation of the patient, analysis of test results and completion of the medical decision making process will be conducted by additional ED providers. TRAVEL OUTSIDE OF THE [place] IN LAST 30 DAYS: No - Related Data Allergies/Adverse Reactions: No Known Allergies Allergy (Verified 10/09/19 09:16) Home Medications: unk psych meds, alb neb tx Past Medical History - Social History Chew tobacco use (# tins/day): No Frequency of alcohol use: None Drug Abuse: None Pulmonary Medical History: Reports: Hx COPD Renal/ Medical History: Denies: Hx Peritoneal Dialysis Musculoskeltal Medical History: Reports Hx Arthritis Psychiatric Medical History: Reports: Hx Bipolar Disorder, Hx Depression, Hx Schizophrenia Past Surgical History: Reports: Hx Abdominal Surgery, Hx Appendectomy, Hx Section - x4, Hx Cholecystectomy, Hx Gynecologic Surgery, Hx Hysterectomy, Hx Orthopedic Surgery - 2 right ankle - Immunizations Immunizations up to date: Yes Hx Diphtheria, Pertussis, Tetanus Vaccination: No Physical Exam - Vital signs Vitals: Temp Pulse Resp BP Pulse Ox 97.5 F 106 H 20 134/77 H 92 10/09/19 09:15 10/09/19 09:15 10/09/19 09:15 10/09/19 09:15 10/09/19 09:15 Course - Vital Signs Vital signs: Temp Pulse Resp BP Pulse Ox 97.5 F 106 H 20 134/77 H 92 10/09/19 09:15 10/09/19 09:15 10/09/19 09:15 10/09/19 09:15 10/09/19 09:15
[2019-10-09 10:03] LABS: APPEARANCE,URINE CLEAR; BILIRUBIN,URINE NEGATIVE (NEGATIVE); COLOR,URINE YELLOW; GLUCOSE, URINE NEGATIVE (NEGATIVE); KETONES,URINE NEGATIVE (NEGATIVE); LEUKOCYTE ESTERASE,URINE NEGATIVE (NEGATIVE); NITRITE,URINE NEGATIVE (NEGATIVE); PROTEIN,URINE NEGATIVE (NEGATIVE); URINE SPECIFIC GRAVITY 1.019
--- NOTE | 2019-10-09 10:07 | ER Document Report ---
ED General - General Chief Complaint: Shortness Of Breath Stated Complaint: DIFFICULTY BREATHING,COUGH Time Seen by Provider: 10/09/19 09:22 Mode of Arrival: Ambulatory TRAVEL OUTSIDE OF THE [place] IN LAST 30 DAYS: No - HPI Notes: Chief complaint cough and shortness of breath This 59-year-old female with history of COPD and ongoing heavy cigarette smoking presenting to the emergency department with complaints of shortness of breath difficulty breathing productive cough since Monday. Reports it started with a sore throat on Monday. She reports she could not even swallow on Monday but her throat feels better now. Very hoarse. Patient has history of smoking but really has not smoked since Monday. Denies fever vomiting diarrhea. Patient is coughing up green sputum. Used her nebulizer 4 times each day since Monday 1 time this morning. Patient reports she is extremely short of breath and cannot lay flat. - Related Data Allergies/Adverse Reactions: No Known Allergies Allergy (Verified 10/09/19 09:16) Home Medications: [employer] meds, alb neb tx Past Medical History - General Information source: Patient - Social History Smoking Status: Current Every Day Smoker Chew tobacco use (# tins/day): No Frequency of alcohol use: None Drug Abuse: None Family History: Reviewed & Not Pertinent Patient has suicidal ideation: No Patient has homicidal ideation: No Pulmonary Medical History: Reports: Hx COPD Renal/ Medical History: Denies: Hx Peritoneal Dialysis Musculoskeletal Medical History: Reports Hx Arthritis Psychiatric Medical History: Reports: Hx Bipolar Disorder, Hx Depression, Hx Schizophrenia Past Surgical History: Reports: Hx Abdominal Surgery, Hx Appendectomy, Hx Section - x4, Hx Cholecystectomy, Hx Gynecologic Surgery, Hx Hysterectomy, Hx Orthopedic Surgery - 2 right ankle - Immunizations Immunizations up to date: Yes Hx Diphtheria, Pertussis, Tetanus Vaccination: No Review of Systems - Review of Systems Notes: Constitutional: Negative for fever. HENT: Hoarse and has sore throat. Eyes: Negative for visual changes. Cardiovascular: Negative for chest pain. Respiratory: As per HPI. Gastrointestinal: Negative for abdominal pain, vomiting or diarrhea. Genitourinary: Negative for dysuria. Musculoskeletal: Negative for back pain. Skin: Negative for rash. Neurological: Negative for headaches, weakness or numbness. 10 point ROS negative except as marked above and in HPI. Physical Exam - Vital signs Vitals: Temp Pulse Resp BP Pulse Ox 97.5 F 106 H 20 134/77 H 92 10/09/19 09:15 10/09/19 09:15 10/09/19 09:15 10/09/19 09:15 10/09/19 09:15 - Notes Notes: GENERAL: Female patient approximately stated age who is very hoarse and cannot speak above a whisper. SKIN: Good turgor. Ecchymoses both forearms. HEAD: Normocephalic atraumatic. EYES: PERRLA. EOMI. Conjunctivae and sclerae clear. EARS: CANALS AND TMS CLEAR. NOSE: CLEAR. MOUTH: Moist mucosa. Good dentition. No stridor or edema. No drooling. NECK: Supple. No masses or thyromegaly. No adenopathy. Carotids 2+ without bruits. No JVD. BACK: Symmetrical without tenderness. CHEST: Rattling cough. No respiratory distress. Diffuse scattered rhonchi and wheezes bilaterally. HEART: Regular rhythm. No murmur gallop or rub. ABDOMEN: Soft nontender without masses, organomegaly or rebound. Bowel sounds normally active. No bruits. GENITALIA: Deferred. EXTREMITIES: No edema. No calf tenderness. Cap refill less than 1.5 seconds. Dorsalis pedis and posterior tibial pulses 3+ and symmetrical. NEUROLOGICAL: GCS 15. Alert and oriented x3. Normal gait. Fluent speech. Cranial nerves II through XII intact. Sensorimotor and cerebellar normal. Normal tone. PSYCHIATRIC: Appropriate affect. Course - Re-evaluation Re-evalutation: 10/09/19 13:45 Came in with diffuse wheezes bilaterally and an O2 sat of 92% on room air. We gave her IV steroids multiple neb treatments we also did a chest x-ray which showed no focal infiltrates and did a flu swab which was negative. After these interventions we did an arterial blood gas on room air showing pH 7.44 PCO2 of 35 and a PO2 of 54. Patient has been placed on low-flow oxygen will be admitted by the hospitalist service Frances Larson. - Vital Signs Vital signs: Temp Pulse Resp BP Pulse Ox 97.5 F 106 H 20 134/77 H 92 10/09/19 09:15 10/09/19 09:15 10/09/19 09:15 10/09/19 09:15 10/09/19 09:15 - Laboratory Result Diagrams: 10/09/19 11:43 10/09/19 11:43 Laboratory results interpreted by me: 10/09/19 10/09/19 10/09/19 09:40 11:43 12:33 Hgb 16.1 H RDW 14.4 H ABG pO2 55.5 L ABG O2 Saturation 90.1 L Urine Urobilinogen 2.0 H Discharge - Discharge Clinical Impression: Acute exacerbation of chronic obstructive pulmonary disease (COPD) Acute bronchitis Qualifiers: Bronchitis organism: unspecified organism Qualified Code(s): J20.9 - Acute bronchitis, unspecified Condition: Fair Disposition: ADMITTED INPATIENT Admitting Provider: Mary (Hospitalist) Unit Admitted: Medical Floor
[2019-10-09] MEDS ORDERED: METHYLPREDNISOLONE INJ 125 MG/2 ML SDV IV ONE (10:09)
[2019-10-09 10:15] LABS: ADD MANUAL MICROSCOPIC YES
[2019-10-09 10:17] LABS: BACTERIA,URINE TRACE /HPF; WBC,URINE 0-1 /HPF
--- NOTE | 2019-10-09 10:40 | RADIOLOGY REPORT (SQ) ---
EXAM DESCRIPTION: CHEST 2 VIEWS COMPLETED DATE/TIME: 10/09/2019 10:23 am REASON FOR STUDY: difficulty breathing, sob COMPARISON: 10/17/2018 EXAM PARAMETERS: NUMBER OF VIEWS: two views TECHNIQUE: Digital Frontal and Lateral radiographic views of the chest acquired. RADIATION DOSE: NA LIMITATIONS: none FINDINGS: LUNGS AND PLEURA: No opacities, masses or pneumothorax. No pleural effusion. MEDIASTINUM AND HILAR STRUCTURES: No masses or contour abnormalities. HEART AND VASCULAR STRUCTURES: Heart normal size. No evidence for failure. BONES: No acute findings. HARDWARE: None in the chest. OTHER: No other significant finding. IMPRESSION: NO ACUTE RADIOGRAPHIC FINDING IN THE CHEST. TECHNICAL DOCUMENTATION: JOB ID: [id number] 2010 [employer]- All Rights Reserved Reading location - IP/workstation name: [email or web address]
[2019-10-09 12:11] LABS: ABSOLUTE BASOPHILS # (AUTO) 0.1 10^3/uL (0.0-0.2); ABSOLUTE EOSINOPHILS # (AUTO) 0.1 10^3/uL (0.0-0.6); ABSOLUTE LYMPHOCYTES (AUTO) 2.6 10^3/uL (0.5-4.7); ABSOLUTE MONOCYTES (AUTO) 0.9 10^3/uL (0.1-1.4); ABSOLUTE NEUT (AUTO) 5.9 10^3/uL (1.7-8.2); BASOPHILS % (AUTO) 0.8 % (0-2); EOSINOPHILS % (AUTO) 1.1 % (0-6); HEMATOCRIT 45.7 % (36.0-47.0); HEMOGLOBIN 16.1 g/dL (12.0-15.5); LYMPHOCYTES % (AUTO) 26.7 % (13-45); MEAN CORPUSCULAR HGB CONC 35.2 g/dL (32.0-36.0); MEAN CORPUSCULAR VOLUME 94 fl (80-97); MONOCYTES % (AUTO) 9.7 % (3-13); PLATELET COUNT 181 10^3/uL (150-450); RED BLOOD COUNT 4.87 10^6/uL (3.72-5.28); RED CELL DISTRIBUTION WIDTH 14.4 % (11.5-14.0); SEGMENTED NEUTROPHILS % (AUTO) 61.7 % (42-78); TOTAL CELLS COUNTED % (AUTO) 100 %; WHITE BLOOD COUNT 9.6 10^3/uL (4.0-10.5)
[2019-10-09 12:55] LABS: A TYPE INFLUENZA AG NEGATIVE (NEGATIVE); B INFLUENZA AG NEGATIVE (NEGATIVE)
[2019-10-09 12:59] LABS: ALBUMIN 4.3 g/dL (3.5-5.0); ALKALINE PHOSPHATASE 86 U/L (38-126); ANION GAP 9 (5-19); ASPARTATE AMINO TRANSFERASE 20 U/L (14-36); BILIRUBIN,TOTAL 0.3 mg/dL (0.2-1.3); BLOOD UREA NITROGEN 8 mg/dL (7-20); CALCIUM 9.2 mg/dL (8.4-10.2); CARBON DIOXIDE 23 mmol/L (22-30); CHLORIDE 107 mmol/L (98-107); GLUCOSE 88 mg/dL (75-110); POTASSIUM 4.3 mmol/L (3.6-5.0); TOTAL PROTEIN 6.9 g/dL (6.3-8.2)
[2019-10-09 13:07] LABS: ARTERIAL BLOOD BASE EXCESS -0.4 mmol/L; ARTERIAL BLOOD H2CO3 1.06 mmol/L (1.05-1.35); ARTERIAL BLOOD HCO3 23.2 mmol/L (20-24); ARTERIAL BLOOD O2 SATURATION 90.1 % (94-98); ARTERIAL BLOOD PCO2 35.2 mmHg (35-45); ARTERIAL BLOOD PH 7.44 (7.35-7.45); ARTERIAL BLOOD PO2 55.5 mmHg (80-100); ARTERIAL BLOOD TOTAL CO2 24.2 mmol/L (21-25)
[2019-10-09 13:15] LABS: ARTERIAL BLOOD FIO2 ROOM AIR
[2019-10-09] MEDS ORDERED: ALBUTEROL SULFATE 0.083% NEB 2.5 MG/3 ML AMPUL NEB PRN (15:05)
[2019-10-09] MEDS ORDERED: ACETAMINOPHEN 325 MG TABLET PO PRN (15:05)
[2019-10-09] MEDS ORDERED: MAG HYDROX/AL HYDROX/SIMETH SUSP 30 ML UDCUP PO PRN (15:10)
[2019-10-09] MEDS ORDERED: ONDANSETRON HCL INJ/PF 4 MG/2 ML SDV IV PRN (15:10)
--- NOTE | 2019-10-09 17:25 | EKG REPORT ---
SEVERITY:- OTHERWISE NORMAL ECG - SINUS TACHYCARDIA : Confirmed by: Ev Taylor 09-Oct-2019 17:24:16
[2019-10-09] MEDS: IBUPROFEN 600 MG TABLET PO PRN (17:28)
[2019-10-09] MEDS ORDERED: LORAZEPAM 1 MG TABLET PO PRN (18:30)
[2019-10-09] MEDS ORDERED: BENZOCAINE/MENTHOL SORE THROAT LOZENGE BUCCAL PRN (18:35)
[2019-10-09] MEDS ORDERED: GUAIFENESIN SYRP 200 MG/10 ML UDC PO PRN (18:37)
--- NOTE | 2019-10-09 18:41 | PDOC H&P ---
History of Present Illness Admission Date/PCP: 10/09/19 14:26 Patient complains of: shortness of breath History of Present Illness: ENRIQUE MEJIA is a 59 year old female with a past medical history of bipolar disorder, COPD, and tobacco dependence with continuous use who presented to the emergency department today with a complaint of progressively worsening shortness of breath. Patient reports 4 days of sore throat, intermittent laryngitis, productive cough, dyspnea, headache, and fatigue. She is trialed [id number] medications without relief of her symptoms. On presentation to the emergency department today, she was found to be tachycardic, tachypneic, but maintaining oxygen saturations (92% on room air) but with increased work of breathing, retractions, and accessory muscle use. CBC, ABG, chemistry, urinalysis, and influenza all benign. Chest x-ray was negative for acute cardiopulmonary findings. She is provided nebulizer treatments, supplemental oxygen, and steroid therapy with improvement in her symptoms but continued work of breathing. She was referred to the hospital service for admission and management of the above-stated complaints of findings. Past Medical History Cardiac Medical History: Reports: None Pulmonary Medical History: Reports: Asthma, Bronchitis, Chronic Obstructive Pulmonary Disease (COPD) EENT Medical History: Reports: None Neurological Medical History: Reports: None Endocrine Medical History: Reports: Obesity Renal/ Medical History: Reports: None Malignancy Medical History: Reports: None GI Medical History: Reports: None Musculoskeltal Medical History: Reports: Arthritis Psychiatric Medical History: Reports: Bipolar Disorder, Depression, Tobacco Dependency Traumatic Medical History: Reports: None Hematology: Reports: None Infectious Medical History: Reports: None Past Surgical History Past Surgical History: Reports: Appendectomy, Section - x4, Cholecystectomy, Hysterectomy, Orthopedic Surgery - 2 right ankle, Tonsillectomy Social History Information Source: Patient Lives with: Family Smoking Status: Current Every Day Smoker Electronic Cigarette use?: No Frequency of Alcohol Use: None Hx Recreational Drug Use: No Hx Prescription Drug Abuse: No - Advance Directive Resuscitation Status: Full Code Family History Family History: Reviewed & Not Pertinent Parental Family History Reviewed: Yes Children Family History Reviewed: Yes Sibling(s) Family History Reviewed.: Yes Medication/Allergy Home Medications: Divalproex Sodium [Depakote ER 500 mg Tab.sr] 500 mg PO Q12 10/09/19 Escitalopram Oxalate [Lexapro 10 mg Tablet] 10 mg PO DAILY 10/09/19 Lorazepam [Ativan 1 mg Tablet] 1 mg PO DAILYP PRN 10/09/19 Quetiapine Fumarate 300 mg PO QHS 10/09/19 Trazodone HCl 100 mg PO QHS 10/09/19 Allergies/Adverse Reactions: No Known Allergies Allergy (Verified 10/09/19 09:16) Review of Systems Constitutional: PRESENT: chills, fatigue, fever(s), headache(s), weakness. ABSENT: weight gain, weight loss Eyes: ABSENT: visual disturbances Ears: ABSENT: hearing changes Nose, Mouth, and Throat: PRESENT: sore throat Cardiovascular: PRESENT: dyspnea on exertion. ABSENT: chest pain, edema, orthropnea, palpitations Respiratory: PRESENT: cough, dyspnea, sputum. ABSENT: hemoptysis Gastrointestinal: ABSENT: abdominal pain, constipation, diarrhea, hematemesis, hematochezia, nausea, vomiting Genitourinary: ABSENT: dysuria, hematuria Musculoskeletal: ABSENT: joint swelling Integumentary: ABSENT: rash, wounds Neurological: ABSENT: abnormal gait, abnormal speech, confusion, dizziness, focal weakness, syncope Psychiatric: ABSENT: anxiety, depression, homidical ideation, suicidal ideation Endocrine: ABSENT: cold intolerance, heat intolerance, polydipsia, polyuria Hematologic/Lymphatic: ABSENT: easy bleeding, easy bruising Physical Exam Vital Signs: Temp Pulse Resp BP Pulse Ox 98.2 F 106 H 14 139/76 H 96 10/09/19 16:52 10/09/19 16:52 10/09/19 16:52 10/09/19 16:52 10/09/19 16:52 Intake & Output 10/08/19 10/09/19 10/10/19 06:59 06:59 06:59 Weight 87.2 kg General appearance: PRESENT: no acute distress, disheveled, obese, well- developed, well-nourished Head exam: PRESENT: atraumatic, normocephalic Eye exam: PRESENT: conjunctiva pink, EOMI, PERRLA. ABSENT: scleral icterus Mouth exam: PRESENT: moist, tongue midline Teeth exam: PRESENT: poor dentation Respiratory exam: PRESENT: prolonged expiratory phas, rhonchi, symmetrical, unlabored, other - Supplemental oxygen by nasal cannula. ABSENT: rales, wheezes Cardiovascular exam: PRESENT: RRR, +S1, +S2, tachycardia - HR 106. ABSENT: diastolic murmur, rubs, systolic murmur Pulses: PRESENT: normal dorsalis pedis pul Vascular exam: PRESENT: normal capillary refill GI/Abdominal exam: PRESENT: normal bowel sounds, soft. ABSENT: distended, guarding, mass, organolmegaly, rebound, tenderness Rectal exam: PRESENT: deferred Extremities exam: PRESENT: full ROM. ABSENT: calf tenderness, clubbing, pedal edema Neurological exam: PRESENT: alert, awake, oriented to person, oriented to place, oriented to time, oriented to situation, CN II-XII grossly intact. ABSENT: motor sensory deficit Psychiatric exam: PRESENT: appropriate affect, normal mood. ABSENT: homicidal ideation, suicidal ideation Skin exam: PRESENT: dry, intact, warm. ABSENT: cyanosis, rash Results Laboratory Results: 10/09/19 11:43 10/09/19 11:43 10/09/19 10/09/19 10/09/19 09:40 11:43 11:43 WBC 9.6 RBC 4.87 Hgb 16.1 H Hct 45.7 MCV 94 MCH 33.0 MCHC 35.2 RDW 14.4 H Plt Count 181 Seg Neutrophils % 61.7 Carbonic Acid HCO3/H2CO3 Ratio ABG pH ABG pCO2 ABG pO2 ABG HCO3 ABG O2 Saturation ABG Base Excess FiO2 Sodium 139.4 Potassium 4.3 Chloride 107 Carbon Dioxide 23 Anion Gap 9 BUN 8 Creatinine 0.56 Est GFR ( Amer) > 60 Glucose 88 Calcium 9.2 Total Bilirubin 0.3 AST 20 Alkaline Phosphatase 86 Total Protein 6.9 Albumin 4.3 Urine Color YELLOW Urine Appearance CLEAR Urine pH 5.0 Ur Specific [place] 1.019 Urine Protein NEGATIVE Urine Glucose (UA) NEGATIVE Urine Ketones NEGATIVE Urine Blood NEGATIVE Urine Nitrite NEGATIVE Ur Leukocyte Esterase NEGATIVE Ur Squamous Epith Cells MODERATE 10/09/19 12:33 WBC RBC Hgb Hct MCV MCH MCHC RDW Plt Count Seg Neutrophils % Carbonic Acid 1.06 HCO3/H2CO3 Ratio 21:1 ABG pH 7.44 ABG pCO2 35.2 ABG pO2 55.5 L ABG HCO3 23.2 ABG O2 Saturation 90.1 L ABG Base Excess -0.4 FiO2 ROOM AIR Sodium Potassium Chloride Carbon Dioxide Anion Gap BUN Creatinine Est GFR ( Amer) Glucose Calcium Total Bilirubin AST Alkaline Phosphatase Total Protein Albumin Urine Color Urine Appearance Urine pH Ur Specific [place] Urine Protein Urine Glucose (UA) Urine Ketones Urine Blood Urine Nitrite Ur Leukocyte Esterase Ur Squamous Epith Cells 10/09/19 11:43 NT-Pro-B Natriuret Pep 42 Impressions: Chest X-Ray 10/09/19 09:26 IMPRESSION: NO ACUTE RADIOGRAPHIC FINDING IN THE CHEST. Assessment and Plan - Diagnosis (1) Acute exacerbation of chronic obstructive pulmonary disease (COPD) Is this a current diagnosis for this admission?: Yes Plan: Patient is admitted to the medical floor. Will provide supplemental oxygen as needed to maintain saturations greater than 89%. Start on scheduled and as needed nebulizer treatments. Provide IV Solu-Medrol. Mucinex twice daily. Robitussin as needed. Pulmonary toilet is encouraged with incentive spirometer, flutter valve, and early ambulation. (2) Viral URI Is this a current diagnosis for this admission?: Yes Plan: Influenza negative. Symptomatic management. Analgesics and antipyretics as needed. Cepacol and Robitussin as needed. Encourage p.o. fluids. (3) Bipolar disorder Is this a current diagnosis for this admission?: Yes Plan: We will continue her home medication regiment of Depakote, Lexapro, Ativan, Sero quel, and trazodone. (4) Tobacco dependence Is this a current diagnosis for this admission?: Yes Plan: Smoking cessation encouraged. Nicotine replacement therapies provided. - Time Time Spent with patient: 35 or more minutes Medications reviewed and adjusted accordingly: Yes Anticipated discharge: Home Within: within 24 hours
[2019-10-09] MEDS: IPRATROPIUM/ALBUTEROL 0.5-2.5 MG/3 ML AMPUL NEB SCH (19:55)
[2019-10-09] MEDS: DIVALPROEX SODIUM 500 MG TAB.SR.24H PO SCH (21:13)
[2019-10-09] MEDS: GUAIFENESIN 600 MG TABLET.SA PO SCH (21:13)
[2019-10-09] MEDS: HEPARIN SOD (PORCINE) 5,000 UNIT/ML 1 ML VIAL SUBCUT SCH (21:13)
[2019-10-09] MEDS: METHYLPREDNISOLONE INJ 40 MG/1 ML SDV IV SCH (21:13)
[2019-10-09] MEDS ORDERED: (PENDING PHARMACY ID) (Quetiapine Fumarate [Quetiapine Fumarate] 300 MG) PO SCH (22:00)
[2019-10-09] MEDS ORDERED: TRAZODONE HCL 50 MG TABLET PO SCH (22:00)
[2019-10-09] MEDS ORDERED: QUETIAPINE FUMARATE 100 MG TABLET PO SCH (22:00)
[2019-10-10] MEDS: IPRATROPIUM/ALBUTEROL 0.5-2.5 MG/3 ML AMPUL NEB SCH ×2 (02:30→08:08)
[2019-10-10] MEDS: IBUPROFEN 600 MG TABLET PO PRN (04:47)
[2019-10-10] MEDS: METHYLPREDNISOLONE INJ 40 MG/1 ML SDV IV SCH ×2 (05:02→13:34)
[2019-10-10] MEDS: HEPARIN SOD (PORCINE) 5,000 UNIT/ML 1 ML VIAL SUBCUT SCH ×2 (05:02→13:56)
[2019-10-10 05:28] LABS: HEMATOCRIT 42.4 % (36.0-47.0); HEMOGLOBIN 14.9 g/dL (12.0-15.5); MEAN CORPUSCULAR HEMOGLOBIN 32.8 pg (27.0-33.4); MEAN CORPUSCULAR HGB CONC 35.2 g/dL (32.0-36.0); MEAN CORPUSCULAR VOLUME 93 fl (80-97); PLATELET COUNT 174 10^3/uL (150-450); RED BLOOD COUNT 4.56 10^6/uL (3.72-5.28); RED CELL DISTRIBUTION WIDTH 14.4 % (11.5-14.0); WHITE BLOOD COUNT 16.5 10^3/uL (4.0-10.5)
[2019-10-10 05:54] LABS: ANION GAP 16 (5-19); BLOOD UREA NITROGEN 16 mg/dL (7-20); CALCIUM 9.2 mg/dL (8.4-10.2); CARBON DIOXIDE 22 mmol/L (22-30); CHLORIDE 102 mmol/L (98-107); GLUCOSE 153 mg/dL (75-110); POTASSIUM 3.8 mmol/L (3.6-5.0)
[2019-10-10] MEDS ORDERED: PANTOPRAZOLE SODIUM 20 MG TABLET.DR PO SCH (06:00)
[2019-10-10] MEDS ORDERED: BUTALB/ACETAMINOPHEN/CAFFEINE 1 TAB EACH PO PRN (08:47)
[2019-10-10] MEDS: DIVALPROEX SODIUM 500 MG TAB.SR.24H PO SCH (09:03)
[2019-10-10] MEDS: GUAIFENESIN 600 MG TABLET.SA PO SCH (09:04)
[2019-10-10] MEDS ORDERED: NICOTINE 14 MG/24 HR PATCH.TD24 TD SCH (10:00)
[2019-10-10] MEDS ORDERED: ESCITALOPRAM OXALATE 10 MG TABLET PO SCH (10:00)
[2019-10-10] MEDS ORDERED: DOCUSATE SODIUM 100 MG CAPSULE PO SCH (10:00)
[2019-10-10] MEDS ORDERED: FLUTICASONE NASAL SPRAY 50 MCG/SPRY 120 SPRAY/16 GM NASL SCH (11:00)
[2019-10-10 13:24] VITALS: BP 128/62
[2019-10-10] MEDS ORDERED: ONDANSETRON HCL INJ/PF 4 MG/2 ML SDV IV PRN (13:30)
--- NOTE | 2019-10-16 13:52 | PDOC DISCHARGE SUMMARY ---
Impression - Admit/DC Date/PCP Admission Date/Primary Care Provider: 10/09/19 14:26 Discharge Date: 10/10/19 - Discharge Diagnosis (1) Acute exacerbation of chronic obstructive pulmonary disease (COPD) Is this a current diagnosis for this admission?: Yes (2) Viral URI Is this a current diagnosis for this admission?: Yes (3) Bipolar disorder Is this a current diagnosis for this admission?: Yes (4) Tobacco dependence Is this a current diagnosis for this admission?: Yes - Additional Information Resuscitation Status: Full Code Discharge Diet: Regular Discharge Activity: Activity As Tolerated, Balance Activity w/Rest, Slowly Increase Activity Referrals: STEPHANIE LONG MD [NO LOCAL MD] - 10/22/19 11:40 am Prescriptions: Albuterol Sulfate [Albuterol Sulfate Hfa] 18 puff IH Q4HP PRN #1 hfa.aer.ad PRN Reason: Shortness Of Breath Benzocaine/Menthol [Chloraseptic Sore Throat Lozenge] 1 each BUCCAL Q2HP PRN #20 lozenge PRN Reason: Prednisone [Deltasone 20 mg Tablet] 60 mg PO DAILY #15 tablet Fluticasone Propionate [Flonase Nasal [place] 50 Mcg/[place] 16 gm] 1 spray NASL Q12 #1 spray.pump Guaifenesin [Mucinex Sr 600 mg Tablet.sa] 600 mg PO Q12 #14 tablet.sa Nicotine [Nicoderm 14 mg/24 Hr Transdermal Patch] 1 each TD DAILY #30 patch.td24 Montelukast Sodium [Singulair 10 mg Tablet] 10 mg PO QHS #30 tablet Home Medications: Divalproex Sodium [Depakote ER 500 mg Tab.sr] 500 mg PO Q12 10/09/19 Escitalopram Oxalate [Lexapro 10 mg Tablet] 10 mg PO DAILY 10/09/19 Lorazepam [Ativan 1 mg Tablet] 1 mg PO DAILYP PRN 10/09/19 Quetiapine Fumarate 300 mg PO QHS 10/09/19 Trazodone HCl 100 mg PO QHS 10/09/19 Acetaminophen [Tylenol 325 mg Tablet] 650 mg PO Q4HP PRN tablet 10/10/19 Albuterol Sulfate [Albuterol Sulfate Hfa] 18 puff IH Q4HP PRN #1 hfa.aer.ad 10/10/19 Benzocaine/Menthol [Chloraseptic Sore Throat Lozenge] 1 each BUCCAL Q2HP PRN #20 lozenge 10/10/19 Fluticasone Propionate [Flonase Nasal [place] 50 Mcg/[place] 16 gm] 1 spray NASL Q12 #1 spray.pump 10/10/19 Guaifenesin [Mucinex Sr 600 mg Tablet.sa] 600 mg PO Q12 #14 tablet.sa 10/10/19 Ibuprofen [Motrin 600 mg Tablet] 600 mg PO Q8HP PRN tablet 10/10/19 Montelukast Sodium [Singulair 10 mg Tablet] 10 mg PO QHS #30 tablet 10/10/19 Nicotine [Nicoderm 14 mg/24 Hr Transdermal Patch] 1 each TD DAILY #30 patch.td24 10/10/19 Prednisone [Deltasone 20 mg Tablet] 60 mg PO DAILY #15 tablet 10/10/19 History of Present Illiness History of Present Illness: ERNIQUE MEJIA is a 59 year old female with a past medical history of bipolar disorder, COPD, and tobacco dependence with continuous use who presented to the emergency department today with a complaint of progressively worsening shortness of breath. Patient reports 4 days of sore throat, intermittent laryngitis, productive cough, dyspnea, headache, and fatigue. She is trialed lcuw-jnb-metmymb medications without relief of her symptoms. On presentation to the emergency department today, she was found to be tachycardic, tachypneic, but maintaining oxygen saturations (92% on room air) but with increased work of breathing, retractions, and accessory muscle use. CBC, ABG, chemistry, urinalysis, and influenza all benign. Chest x-ray was negative for acute cardiopulmonary findings. She is provided nebulizer treatments, supplemental oxygen, and steroid therapy with improvement in her symptoms but continued work of breathing. She was referred to the hospital service for admission and management of the above-stated complaints of findings. Hospital Course Hospital Course: (1) Acute exacerbation of chronic obstructive pulmonary disease (COPD) Significantly improved; now with minimal symptoms, maintaining oxygen saturations on room air, with clear lung sounds. Patient was admitted to the medical floor. She was provided supplemental oxygen, scheduled and as needed nebulizer treatmen ts, IV Solu-Medrol, Mucinex, and Robitussin as needed. Pulmonary toilet was encouraged with incentive spirometer, flutter valve, and early ambulation. The patient's respiratory symptoms rapidly improved and by the following morning, she was no longer dyspneic and was ambulatory on room air without worsening symptoms. She does continue to have a slight, nonproductive cough, rhinorrhea, and postnasal drip. She is discharged home in stable condition with self-care. She is advised to stop smoking. She is encouraged to follow-up with her primary care provider within 1 week and to return to the emergency department as needed for any worsening symptoms. (2) Viral URI Influenza negative. Patient denies fever/chills prior to admission and remained afebrile. No known (+) contacts. Low clinical suspicion based on clinical exam/HPI. Does not meet for COVID19 testing. Symptomatic management. (3) Bipolar disorder Stable and without exacerbation. Continue her home medication regiment of Depakote, Lexapro, Ativan, Seroquel, and trazodone. (4) Tobacco dependence Smoking cessation encouraged. Nicotine replacement therapies provided. Physical Exam Vital Signs: Temp Pulse Resp BP Pulse Ox 98.1 F 105 H 18 128/62 H 93 10/10/19 13:23 10/10/19 13:23 10/10/19 13:23 10/10/19 13:23 10/10/19 13:23 General appearance: PRESENT: no acute distress, cooperative, disheveled, well- developed, well-nourished, other - Overweight Head exam: PRESENT: atraumatic, normocephalic Eye exam: PRESENT: conjunctiva pink, EOMI, PERRLA. ABSENT: scleral icterus Ear exam: PRESENT: normal external ear exam Mouth exam: PRESENT: moist, tongue midline Neck exam: ABSENT: carotid bruit, JVD, lymphadenopathy, thyromegaly Respiratory exam: PRESENT: clear to auscultation jenifer, symmetrical, unlabored, other - Ambulatory on room air. ABSENT: rales, rhonchi, wheezes Cardiovascular exam: PRESENT: RRR, +S1, +S2. ABSENT: diastolic murmur, rubs, systolic murmur Vascular exam: PRESENT: normal capillary refill GI/Abdominal exam: PRESENT: normal bowel sounds, soft. ABSENT: distended, guarding, mass, organolmegaly, rebound, tenderness Extremities exam: PRESENT: full ROM. ABSENT: calf tenderness, clubbing, pedal edema Neurological exam: PRESENT: alert, awake, oriented to person, oriented to place, oriented to time, oriented to situation, CN II-XII grossly intact. ABSENT: motor sensory deficit Psychiatric exam: PRESENT: appropriate affect, normal mood. ABSENT: homicidal ideation, suicidal ideation Skin exam: PRESENT: dry, intact, warm. ABSENT: cyanosis, rash Results Laboratory Results: WBC 16.5 10^3/uL (4.0-10.5) H 10/10/19 04:31 RBC 4.56 10^6/uL (3.72-5.28) 10/10/19 04:31 Hgb 14.9 g/dL (12.0-15.5) 10/10/19 04:31 Hct 42.4 % (36.0-47.0) 10/10/19 04:31 MCV 93 fl (80-97) 10/10/19 04:31 MCH 32.8 pg (27.0-33.4) 10/10/19 04:31 MCHC 35.2 g/dL (32.0-36.0) 10/10/19 04:31 RDW 14.4 % (11.5-14.0) H 10/10/19 04:31 Plt Count 174 10^3/uL (150-450) 10/10/19 04:31 Lymph % (Auto) 26.7 % (13-45) 10/09/19 11:43 [place] % (Auto) 9.7 % (3-13) 10/09/19 11:43 Eos % (Auto) 1.1 % (0-6) 10/09/19 11:43 Baso % (Auto) 0.8 % (0-2) 10/09/19 11:43 Absolute Neuts (auto) 5.9 10^3/uL (1.7-8.2) 10/09/19 11:43 Absolute Lymphs (auto) 2.6 10^3/uL (0.5-4.7) 10/09/19 11:43 Absolute Monos (auto) 0.9 10^3/uL (0.1-1.4) 10/09/19 11:43 Absolute Eos (auto) 0.1 10^3/uL (0.0-0.6) 10/09/19 11:43 Absolute Basos (auto) 0.1 10^3/uL (0.0-0.2) 10/09/19 11:43 Seg Neutrophils % 61.7 % (42-78) 10/09/19 11:43 Carbonic Acid 1.06 mmol/L (1.05-1.35) 10/09/19 12:33 HCO3/H2CO3 Ratio 21:1 10/09/19 12:33 ABG pH 7.44 (7.35-7.45) 10/09/19 12:33 ABG pCO2 35.2 mmHg (35-45) 10/09/19 12:33 ABG pO2 55.5 mmHg (80-100) L 10/09/19 12:33 ABG HCO3 23.2 mmol/L (20-24) 10/09/19 12:33 ABG Total CO2 24.2 mmol/L (21-25) 10/09/19 12:33 ABG O2 Saturation 90.1 % (94-98) L 10/09/19 12:33 ABG Base Excess -0.4 mmol/L 10/09/19 12:33 FiO2 ROOM AIR 10/09/19 12:33 Sodium 140.0 mmol/L (137-145) 10/10/19 04:31 Potassium 3.8 mmol/L (3.6-5.0) 10/10/19 04:31 Chloride 102 mmol/L (98-107) 10/10/19 04:31 Carbon Dioxide 22 mmol/L (22-30) 10/10/19 04:31 Anion Gap 16 (5-19) 10/10/19 04:31 BUN 16 mg/dL (7-20) 10/10/19 04:31 Creatinine 0.56 mg/dL (0.52-1.25) 10/10/19 04:31 Est GFR ( Amer) > 60 (>60) 10/10/19 04:31 Est GFR (MDRD) Non-Af > 60 (>60) 10/10/19 04:31 Glucose 153 mg/dL (75-110) H 10/10/19 04:31 Hemoglobin A1c % 5.5 % (4.7-6.0) 10/10/19 04:31 Calcium 9.2 mg/dL (8.4-10.2) 10/10/19 04:31 Total Bilirubin 0.3 mg/dL (0.2-1.3) 10/09/19 11:43 Direct Bilirubin 0.0 mg/dL (0.0-0.4) 10/09/19 11:43 Neonat Total Bilirubin Not Reportable 10/09/19 11:43 Neonat Direct Bilirubin Not Reportable 10/09/19 11:43 Neonat Indirect Bili Not Reportable 10/09/19 11:43 AST 20 U/L (14-36) 10/09/19 11:43 ALT 13 U/L (<35) 10/09/19 11:43 Alkaline Phosphatase 86 U/L (38-126) 10/09/19 11:43 NT-Pro-B Natriuret Pep 42 pg/mL (<125) 10/09/19 11:43 Total Protein 6.9 g/dL (6.3-8.2) 10/09/19 11:43 Albumin 4.3 g/dL (3.5-5.0) 10/09/19 11:43 TSH 0.39 uIU/mL (0.47-4.68) L 10/10/19 04:31 Urine Color YELLOW 10/09/19 09:40 Urine Appearance CLEAR 10/09/19 09:40 Urine pH 5.0 (5.0-9.0) 10/09/19 09:40 Ur Specific [place] 1.019 10/09/19 09:40 Urine Protein NEGATIVE mg/dL (NEGATIVE) 10/09/19 09:40 Urine Glucose (UA) NEGATIVE mg/dL (NEGATIVE) 10/09/19 09:40 Urine Ketones NEGATIVE mg/dL (NEGATIVE) 10/09/19 09:40 Urine Blood NEGATIVE (NEGATIVE) 10/09/19 09:40 Urine Nitrite NEGATIVE (NEGATIVE) 10/09/19 09:40 Urine Bilirubin NEGATIVE (NEGATIVE) 10/09/19 09:40 Urine Urobilinogen 2.0 mg/dL (<2.0) H 10/09/19 09:40 Ur Leukocyte Esterase NEGATIVE (NEGATIVE) 10/09/19 09:40 Urine RBC 1-5 /HPF 10/09/19 09:40 Urine WBC 0-1 /HPF 10/09/19 09:40 Ur Squamous Epith Cells MODERATE /HPF 10/09/19 09:40 Urine Bacteria TRACE /HPF 10/09/19 09:40 Urine Mucus 3+ 10/09/19 09:40 Urine Ascorbic Acid NEGATIVE (NEGATIVE) 10/09/19 09:40 Influenza A (Rapid) NEGATIVE (NEGATIVE) 10/09/19 12:05 Influenza B (Rapid) NEGATIVE (NEGATIVE) 10/09/19 12:05 10/09/19 11:43 NT-Pro-B Natriuret Pep 42 Impressions: Chest X-Ray 10/09/19 09:26 IMPRESSION: NO ACUTE RADIOGRAPHIC FINDING IN THE CHEST. Plan Plan of Treatment: Discharged home in stable condition. She is instructed to follow-up with her primary care provider within 1 week. Complete full course of steroid therapy. Take other medication as prescribed. Eat a heart healthy diet. Do NOT smoke. Return to emergency department as needed for concerning symptoms. Time Spent: Less than 30 Minutes Stroke Is this a Stroke Patient?: No Acute Heart Failure - Is this a Heart Failure Patient?: No
== END 2019-10-10 13:45 | disposition home or self-care (01) ==
LOC: ER 09:11 → EH 14:26 → INTOOBSV 14:26 → 4N 16:40
PROVIDERS: ADMIT Internal Medicine; ATTEND Internal Medicine
DX: J44.1 Chronic obstructive pulmonary disease with (acute) exacerbation (principal); J06.9 Acute upper respiratory infection, unspecified; F31.9 Bipolar disorder, unspecified; F17.200 Nicotine dependence, unspecified, uncomplicated; R00.0 Tachycardia, unspecified; R06.82 Tachypnea, not elsewhere classified; R51 Headache; J04.0 Acute laryngitis; E66.9 Obesity, unspecified; F20.9 Schizophrenia, unspecified; M13.80 Other specified arthritis, unspecified site; Z79.899 Other long term (current) drug therapy
CPT/HCPCS: 93005; 94640 ×4; 99285; 96374; 36415 ×2; 82803; 84443; 85025; 85027; 80048; 80053; 81001; 83036; 87804; 83880; 71046; 94799; 93010; 94667; G0378 ×3; J3490 ×13; J1644 ×2; J2920 ×2; J2930; J7620 ×2

== ENCOUNTER 2019-12-25 05:32 | Inpatient (IN) | payer MEDICAID ==
[2019-12-20 11:21] LABS: HEMATOCRIT 45.8 % (36.0-47.0); HEMOGLOBIN 16.1 g/dL (12.0-15.5); MEAN CORPUSCULAR HEMOGLOBIN 32.8 pg (27.0-33.4); MEAN CORPUSCULAR HGB CONC 35.2 g/dL (32.0-36.0); MEAN CORPUSCULAR VOLUME 93 fl (80-97); PLATELET COUNT 210 10^3/uL (150-450); RED BLOOD COUNT 4.92 10^6/uL (3.72-5.28); RED CELL DISTRIBUTION WIDTH 14.5 % (11.5-14.0); WHITE BLOOD COUNT 10.3 10^3/uL (4.0-10.5)
[~2019-12-25 05:32] MED LIST: CEFAZOLIN INJ 1 GM VIAL ONE; LACTATED RINGERS 1000 ML IV PRN; LIDOCAINE 0.5% INJ-PF (5 MG/ML) 50 ML SDV SUBCUT PRN
[2019-12-25] MEDS ORDERED: FENTANYL CITRATE INJ/PF 250 MCG/5 ML AMPULE ONE (07:18)
[2019-12-25] MEDS ORDERED: MIDAZOLAM 2 MG/2 ML INJ ONE (07:18)
[2019-12-25] MEDS ORDERED: PROPOFOL INJ 200 MG/20 ML VIAL IV ONE (07:19)
[2019-12-25] MEDS ORDERED: EPHEDRINE SULFATE INJ 50 MG/1 ML AMPULE ONE (07:19)
[2019-12-25] MEDS ORDERED: OXYMETAZOLINE HCL 0.05% NASAL SPRAY 15 ML BOTTLE ONE (07:23)
[2019-12-25] MEDS ORDERED: LIDOCAINE 2%/EPINEPHRINE INJ 1.7 ML CARTRIDGE ONE (07:23)
[2019-12-25] MEDS ORDERED: METHYLENE BLUE 50 MG/10 ML AMPULE ONE (07:31)
[2019-12-25] MEDS ORDERED: LIDOCAINE 2% INJ-PF (20 MG/ML) 2 ML AMPUL ONE (08:02)
[2019-12-25] MEDS ORDERED: DEXAMETHASONE SOD PHOSPHATE INJ 4 MG/1 ML VIAL ONE (08:02)
[2019-12-25] MEDS ORDERED: SUCCINYLCHOLINE CHLORIDE INJ 200 MG/10 ML VIAL ONE (08:02)
[2019-12-25] MEDS ORDERED: ROCURONIUM BROMIDE INJ 50 MG/5 ML VIAL IV ONE (08:02)
[2019-12-25] MEDS ORDERED: ONDANSETRON HCL INJ/PF 4 MG/2 ML SDV ONE (08:02)
[2019-12-25] MEDS ORDERED: NEOSTIGMINE METHYLSULFATE 10 MG/10 ML VIAL ONE (08:02)
[2019-12-25] MEDS ORDERED: GLYCOPYRROLATE 1 MG/5 ML VIAL ONE (08:02)
[2019-12-25] MEDS ORDERED: MEPERIDINE HCL/PF INJ 25 MG/1 ML DISP.SYRIN IV PRN (08:20)
[2019-12-25] MEDS ORDERED: OXYCODONE-ACETAMINOPHEN 5-325 MG TABLET PO PRN ×2 (08:20)
[2019-12-25] MEDS ORDERED: FENTANYL CITRATE INJ/PF 100 MCG/2 ML AMPUL IV PRN ×3 (08:20)
[2019-12-25] MEDS ORDERED: DIPHENHYDRAMINE HCL 50 MG/ML VIAL IV PRN (08:20)
[2019-12-25] MEDS ORDERED: PROMETHAZINE HCL INJ 25 MG/1 ML VIAL IV PRN ×2 (08:20)
[2019-12-25] MEDS ORDERED: ONDANSETRON HCL INJ/PF 4 MG/2 ML SDV IV PRN (12:06)
[2019-12-25] MEDS: HYDROCODONE/ACETAMINOPHEN 5-325 MG TABLET PO PRN ×2 (14:03→20:04)
[2019-12-25] MEDS: DEXAMETHASONE SOD PHOS INJ 10 MG/1 ML VIAL IV SCH ×2 (14:05→21:43)
--- NOTE | 2019-12-25 16:26 | Operative Report ---
Operative Report-[facility] Operative Report: Date: 25 Dec 2019 History: 59-year-old female with a history of left parotid mass. CT scan confirms that the mass is in the deep lobe of the parotid. 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 Patient presents for a left total parotidectomy. Informed consent was obtained from the patient. Preoperative Diagnosis: 1. Left deep lobe parotid Mass, Cytopatholoy consistent with Warthin's tumor Postoperative Diagnosis: Same as above Procedure: 1. Left Total parotidectomy with facial nerve dissection 2. Use of nerve integrity monitoring Surgeon: Cirilo Nation MD, FACS, FCCP Battery Hand surgeon: Yonny Varner DO Anesthesia: GETMaris Description of the procedure: After receiving informed consent from the patient, the patient was taken to the operating room and placed supine on the operating room table. After successful induction and intubation by anesthesia. Shoulder roll was placed to extend the neck. The head was turned towards the right side, to expose the left surgical field. The modified Kd incision was marked with a marking pen and then infiltrated with 2% Xylocaine with 100,000 epinephrine. The nerve integrity monitoring electrodes were placed to monitor the following branches of the facial nerve: Temporal, zygomatic, buccal and marginal mandibular. The nerve integrity monitor was calibrated and found to be functioning normally. The patient was then prepped and draped in a sterile fashion. 15 blade was then used to incise the skin down to the parotid fascia superiorly and the platysma inferiorly. The platysma muscle was then incised with a 15 blade. Skin flaps were then elevated in a supra SMAS and subplatysmal fashion. The skin flaps were extended out to the masseter muscle. Dissection began superiorly carefully the parotid gland from the surrounding tissue. Inferiorly the anterior border of the sternocleidomastoid muscle was identified and the parotid gland was carefully dissected off of the sternocleidomastoid muscle. It should be noted that the greater auricular nerve was identified and preserved. As the dissection progressed the tragal pointer was identified superiorly and inferiorly the posterior belly of digastric was identified. The tympanomastoid suture line was identified and the dissection at this point was focused on finding the main trunk of the facial nerve. The main trunk of the facial nerve was identified and was stimulated using the Prass probe and all branches were found to be intact/stimulated. A Muller dissector was then used to follow the main trunk of the facial nerve to the pes ansurinas. This was identified and then dissection began the parotid gland from the facial nerve starting with the most inferior branch which was identified and preserved. As the dissection proceeded, branches of the facial nerve were identified and preserved. The mass was deep to the inferior branch of the facial nerve which was the marginal mandibular branch. The marginal mandibular branch was then carefully dissected from the underlying mass and using a vascu lar loop, retracted inferiorly. The next superior branch was the buccal branch which was identified and dissected from the mass. The superior branches were carefully dissected from the mass, creating a cuff of tissue around the mass. The deep lobe mass was then dissected from underlying tissue and removed in toto. After the dissection was completed and the tumor removed, the Prass probe was used to stimulate the main trunk and all branches were found to be intact/stimulated. The wound was then irrigated with normal saline and a [place] drain was placed. The wound was then closed in layers. Superiorly the subcutaneous tissue was closed with 5-0 Monocryl. Inferiorly the platysma and subcutaneous tissues was closed with 4-0 Monocryl. Dermabond Mastisol and Steri-Strips were applied to the inferior portion of the wound. Bacitracin applied to the superior portion of the wound. A pressure dressing was then applied. Patient tolerated the procedure well without any complications. Estimated blood loss: 20 ml Fluids: 1500 mL The patient was then given back to anesthesia who successfully extubated the patient without any complications. The patient was transported to the postanest hesia care unit in stable condition with spontaneous respirations. Examination in the PACU revealed the facial nerve was intact and responding appropriately, grade 1/6.
[2019-12-25] MEDS: MORPHINE SULFATE 10 MG/ML INJ ONE ×2 (17:00→17:17)
[2019-12-25] MEDS: DIVALPROEX SODIUM 500 MG TAB.SR.24H PO SCH (21:43)
[2019-12-25] MEDS: MORPHINE SULFATE 10 MG/ML INJ IV PRN (21:43)
[2019-12-26] MEDS: RINGERS SOLUTION,LACTATED 1,000 ML IV PRN ×2 (00:04→08:13)
[2019-12-26] MEDS: MORPHINE SULFATE 10 MG/ML INJ IV PRN ×3 (01:44→11:48)
[2019-12-26] MEDS: HYDROCODONE/ACETAMINOPHEN 5-325 MG TABLET PO PRN ×2 (04:14→14:55)
[2019-12-26] MEDS: DIVALPROEX SODIUM 500 MG TAB.SR.24H PO SCH (09:19)
[2019-12-26] MEDS ORDERED: MONTELUKAST SODIUM 10 MG TABLET PO SCH (10:00)
[2019-12-26] MEDS ORDERED: ESCITALOPRAM OXALATE 10 MG TABLET PO SCH (10:00)
--- NOTE | 2019-12-26 15:04 | Discharge Summary ---
Discharge Summary (SDC) - Discharge Final Diagnosis: Warthin's tumor, left parotid Date of Surgery: 12/25/19 Discharge Date: 12/26/19 Condition: Good Referrals: CHERRIE RUBIO MD [ACTIVE STAFF] - 01/01/20 2:00 pm Discharge Diet: As Tolerated Respiratory Treatments at Home: Deep Breathing/Coughing Discharge Activity: Activity As Tolerated, No Lifting Over 10 Pounds Home Care Assistance: None Needed Report the Following to Your Physician Immediately: Fever over 101 Degrees, Unusual Bleeding, Redness, Swelling, Warmth - No heavy lifting, sleep with head elevated such as in a recliner. Follow-up with ENT as scheduled. Keep dressing in place, may change as needed., Drainage-Foul Smelling
[2019-12-26 15:08] VITALS: BP 111/69
== END 2019-12-26 15:30 | disposition home or self-care (01) | DRG 134 ==
LOC: OROUT 05:32 → 4N 12:22 → OROUT 12:23 → 4N 13:36
PROVIDERS: ADMIT Otolaryngology; ATTEND Otolaryngology
PROC: 0CT90ZZ Resection of Left Parotid Gland, Open Approach (ICD-10-PCS; 2019-12-25)
PROC: 00BM0ZZ Excision of Facial Nerve, Open Approach (ICD-10-PCS; principal; 2019-12-25 07:30)
DX: D11.0 Benign neoplasm of parotid gland (principal); Z03.818 Encounter for observation for suspected exposure to other biological agents ruled out
CPT/HCPCS: 100; 36415; 85027; 87635; 88307; J0330; J0690; J1100; J2250; J2270; J2405; J2704; J2710; J3010; J3490; J7120; Q9968

== ENCOUNTER → 2020-02-12 | Outpatient (CLI) | payer MEDICAID ==
--- NOTE | 2020-02-12 14:00 | RADIOLOGY REPORT (SQ) ---
EXAM DESCRIPTION: KNEE RIGHT 3 VIEWS IMAGES COMPLETED DATE/TIME: 02/12/2020 1:36 pm REASON FOR STUDY: M25.561 PAIN IN RIGHT KNEE M25.561 PAIN IN RIGHT KNEE COMPARISON: None. NUMBER OF VIEWS: Three views. TECHNIQUE: AP, lateral, and single oblique radiographic images acquired of the right knee. LIMITATIONS: None. FINDINGS: MINERALIZATION: Normal. BONES: No acute fracture or dislocation. No bulky osteophytes. Small superior patellar enthesophyte . JOINT: No dislocation. Moderate effusion. SOFT TISSUES: No soft tissue swelling. No radio-opaque foreign body. Few vascular calcifications. OTHER: No other significant finding. IMPRESSION: Moderate joint effusion without evidence of acute bony abnormality. TECHNICAL DOCUMENTATION: JOB ID: [id number] 2010 [email or web address]- All Rights Reserved Reading location - IP/workstation name: [email or web address]
== END ==
LOC: RAD 13:22
PROVIDERS: ATTEND Physician Assistant
DX: M25.461 Effusion, right knee (principal); M76.891 Other specified enthesopathies of right lower limb, excluding foot; M25.561 Pain in right knee

== ENCOUNTER 2020-02-18 18:10 | Emergency (ER) | payer MEDICAID ==
[2020-02-18 18:26] VITALS: BP 126/89
[2020-02-18] MEDS ORDERED: KETOROLAC TROMETHAMINE 60 MG/2 ML SDV IM ONE (18:28)
--- NOTE | 2020-02-18 18:32 | ER Document Report ---
HPI - HPI Time Seen by Provider: 02/18/20 18:20 Pain Level: 4 Notes: 59 yr old female presents today with complaints of right knee pain for the last three weeks. Denies any recent falls, trauma. States she is been walking around more and has swelling to her right knee. Has not tried any [id number] medications besides taking ibuprofen. Worse with time, nothing makes better. Has not tried any elevation heat or Fam bandage. Denies any numbness or tingling to bilateral lower extremities. Denies fevers, chills, chest pain,palpitations, shortness of breath, dyspnea, nausea, vomiting, diarrhea, abdominal pain, hematuria,blurred vision, double vision, loss of vision, speech changes, LH, dizziness, syncope, headaches, wheezing, ST, URI, neck pain, weakness, bowel or bladder dysfunction, saddle anesthesia, numbness or tingling in bilateral upper or lower extremities equally, muscle paralysis, weakness in bilateral upper or lower extremities equally or rash. Denies IV drug use. MEDICATIONS: I agree with the patient medications as charted by the RN. ALLERGIES: I agree with the allergies as charted by the RN. PAST MEDICAL HISTORY/PAST SURGICAL HISTORY: Reviewed and agree as charted by RN. SOCIAL HISTORY: Reviewed and agree as charted by RN. FAMILY HISTORY: No significant familial comorbid conditions directly related to patient complaint EXAM: Reviewed vital signs as charted by RN. REVIEW OF SYSTEMS:reviewed vital signs by RN CONSTITUTIONAL : Denies fever, chills, or sweats. Denies recent illness. EENT: Denies eye, ear, throat, or mouth pain or symptoms. Denies nasal or sinus congestion or discharge. Denies throat, tongue, or mouth swelling or difficulty swallowing. CARDIOVASCULAR: Denies chest pain. Denies palpitations or racing or irregular heart beat. Denies ankle edema. RESPIRATORY: Denies cough, cold, or chest congestion. Denies shortness of breath, difficulty breathing, or wheezing. GASTROINTESTINAL: Denies abdominal pain or distention. Denies nausea, vomiting, or diarrhea. Denies blood in vomitus, stools, or per rectum. Denies black, tarry stools. Denies constipation. GENITOURINARY: Denies difficulty urinating, painful urination, burning, frequency, blood in urine, or discharge. FEMALE GENITOURINARY: Denies vaginal bleeding, heavy or abnormal periods, irregular periods. Denies vaginal discharge or odor. MUSCULOSKELETAL: reports right knee pain. Denies back or neck pain or stiffness. Denies joint pain or swelling. SKIN: Denies rash, lesions or sores. HEMATOLOGIC : Denies easy bruising or bleeding. LYMPHATIC: Denies swollen, enlarged glands. NEUROLOGICAL: Denies confusion or altered mental status. Denies passing out or loss of consciousness. Denies dizziness or lightheadedness. Denies headache. Denies weakness or paralysis or loss of use of either side. Denies problems with gait or speech. Denies sensory loss, numbness, or tingling. Denies seizures. PSYCHIATRIC: Denies anxiety or stress. Denies depression, suicidal ideation, or homicidal ideation. ALL OTHER SYSTEMS REVIEWED AND NEGATIVE. PHYSICAL EXAMINATION: GENERAL: Well-appearing, well-nourished and in no acute distress. HEAD: Atraumatic, normocephalic. EYES: Pupils equal round and reactive to light, extraocular movements intact, conjunctiva are normal. ENT: Nares patent, oropharynx clear without exudates. Moist mucous membranes. NECK: Normal range of motion, supple without lymphadenopathy LUNGS: Breath sounds clear to auscultation bilaterally and equal. No wheezes rales or rhonchi. HEART: Regular rate and rhythm without murmurs ABDOMEN: Soft, nontender, nondistended abdomen. No guarding, no rebound. No masses appreciated. Female : deferred Musculoskeletal: Normal range of motion, no pitting or edema. No cyanosis. right knee pain with palpation to lateral and medial aspect of knee with noted swelling. negative mily's sign. anterior and posterior drawer test negative. noted pain with inversion and eversion. Dtr + 2 in BLE. Full motor and sensory function to BLE equally. No open wounds. No induration or drainage. Strength 5 out of 5 bilaterally equally. Ankle examination normal. Squeeze test negative. Hip examination normal. Pulses + 2 bilaterally and equally.negative squeeze bilaterally and equally. NEUROLOGICAL: Cranial nerves grossly intact. Normal speech, normal gait. Normal sensory, motor exams PSYCH: Normal mood, normal affect. SKIN: Warm, Dry, normal turgor, no rashes or lesions noted. Dictation was performed using [employer] voice recognition software - REPRODUCTIVE Reproductive: DENIES: : - MUSCULOSKELETAL Musculoskeletal: REPORTS: Extremity pain Past Medical History - General Information source: Patient - Social History Smoking Status: Unknown if Ever Smoked Family History: Reviewed & Not Pertinent - Past Medical History Cardiac Medical History: Denies: Hx Coronary Artery Disease, Hx Heart Attack, Hx Hypertension Pulmonary Medical History: Reports: Hx Bronchitis - hx of, Hx COPD - inhalers Denies: Hx Asthma, Hx Pneumonia Neurological Medical History: Denies: Hx Cerebrovascular Accident, Hx Seizures Renal/ Medical History: Denies: Hx Peritoneal Dialysis Musculoskeletal Medical History: Reports Hx Arthritis - mild Psychiatric Medical History: Reports: Hx Bipolar Disorder, Hx Depression, Hx Schizophrenia Past Surgical History: Reports: Hx Abdominal Surgery, Hx Appendectomy, Hx Section - x4, Hx Cholecystectomy, Hx Gynecologic Surgery, Hx Hysterectomy, Hx Orthopedic Surgery - 2 right ankle, Hx Tonsillectomy - Immunizations Immunizations up to date: Yes Hx Diphtheria, Pertussis, Tetanus Vaccination: No Vertical Provider Document - CONSTITUTIONAL Agree With Documented VS: Yes Exam Limitations: No Limitations General Appearance: WD/WN - INFECTION CONTROL TRAVEL OUTSIDE OF THE [place] IN LAST 30 DAYS: No Course - Re-evaluation Re-evalutation: 02/18/20 18:36 Afebrile vital stable no distress or distress. Nurses notes reviewed. 60 mg Toradol given IM. X-ray of right knee shows tiny avulsion fragment of the tibial spine with suprapatellar joint effusion. Findings worrisome for internal derangement. Consulted with Dr. Du Vega, at 1922 who is solar energy specialist on-call who agreed with plan of putting patient in an Fam bandage and a knee immobilizer with crutches and he will follow her up tomorrow in the office. Patient was agreeable with this plan of care. Patient was given a sixpack of [place] 5 mg-325 to go for pain management, advised to not drive, drink or operate machinery while taking this medication. All questions and concerns were answered by this provider. After performing a Medical Screening Examination, I estimate there is LOW risk for OPEN FRACTURE, COMPARTMENT SYNDROME, DEEP VENOUS THROMBOSIS, ACUTE TENDON RUPTURE, or NEUROVASCULAR INJURY thus I consider the discharge disposition reasonable. I have reevaluated this patient multiple times and no significant life threatening changes are noted. The patient and I have discussed the diagnosis and risks, and we agree with discharging home to closely follow-up with their primary doctor or the referral orthopedist with the understanding that symptoms and presentations can change. We also discussed returning to the Emergency Department immediately if new or worsening symptoms occur. We have discussed the symptoms which are most concerning (e.g., changing or worsening pain, numbness, weakness) that necessitate immediate return 02/18/20 19:29 - Vital Signs Vital signs: Temp Pulse Resp BP Pulse Ox 99.7 F 106 H 18 126/89 H 98 02/18/20 18:25 02/18/20 18:25 02/18/20 18:25 02/18/20 18:25 02/18/20 18:25 Discharge - Discharge Clinical Impression: Effusion, right knee, right knee tibal avulsion fracture Right knee pain Qualifiers: Chronicity: acute Qualified Code(s): M25.561 - Pain in right knee Condition: Stable Disposition: HOME, SELF-CARE Instructions: Use of Crutches ([facility]), Suspected Internal Knee Injury ([facility]), Knee Effusion ([facility]), Sprained Knee ([facility]), Oral Narcotic Medication ([facility]), Knee Immobilizing Splint ([facility]), Ice & Elevation ([facility]) Additional Instructions: Your x-ray showed a tiny avulsion fragment from the tibial spine, you also do have joint effusion around the knee. I did consult with Dr. Vega who is the solar energy specialist on-call who stated that he will see you in the office. You have been given a referral to this solar energy specialist. Please do not drive, drink alcohol or operate heavy machinery while taking opioids to cause sedation or impairment of cognitive function. Keep leg elevated as much as you can above the level of your heart, keep immobilizer on, use crutches when you are ambulating. Please return to the emergency room if you experience any worsening pain, weakness, fever, severe swelling, chest pain or shortness of breath. Return immediately for any new or worsening symptoms. Follow up with primary care provider, call tomorrow to make followup appointment. Referrals: CAYETANO ESPINOSA PA-C [Primary Care Provider] - Follow up as needed DU VEGA MD [ACTIVE STAFF] - Follow up tomorrow
--- NOTE | 2020-02-18 19:12 | RADIOLOGY REPORT (SQ) ---
EXAM DESCRIPTION: KNEE RIGHT 4 VIEWS IMAGES COMPLETED DATE/TIME: 02/18/2020 7:02 pm REASON FOR STUDY: pain and swelling around knee, no trauma COMPARISON: 02/12/2020right knee NUMBER OF VIEWS: Four views. TECHNIQUE: AP, lateral, and both oblique radiographic images acquired of the right knee. LIMITATIONS: None. FINDINGS: MINERALIZATION: Normal. BONES: Suspect tiny avulsion fragment off the tibial spines. JOINT: Large suprapatellar joint effusion. SOFT TISSUES: No soft tissue swelling. No radio-opaque foreign body. OTHER: No other significant finding. IMPRESSION: Tiny avulsion fragment off the tibial spines. Significant suprapatellar joint effusion. Findings are worrisome for internal derangement TECHNICAL DOCUMENTATION: JOB ID: [id number] 2010 [employer]- All Rights Reserved Reading location - IP/workstation name: [id number]
[2020-02-18] MEDS ORDERED: HYDROCODONE/ACETAMINOPHEN 5-325 MG (6 TAB/ER DISP) PO PRN (19:32)
== END 2020-02-18 19:53 | disposition home or self-care (01) ==
LOC: ER 18:10
DX: S82.201A Unspecified fracture of shaft of right tibia, initial encounter for closed fracture (principal); M25.561 Pain in right knee; M25.461 Effusion, right knee; M79.89 Other specified soft tissue disorders; X58.XXXA Exposure to other specified factors, initial encounter
CPT/HCPCS: 99283; 96372; 73564; J1885

== ENCOUNTER → 2020-04-22 | Outpatient (CLI) | payer MEDICAID ==
[2020-04-22 08:18] LABS: ABSOLUTE BASOPHILS # (AUTO) 0.1 10^3/uL (0.0-0.2); ABSOLUTE EOSINOPHILS # (AUTO) 0.2 10^3/uL (0.0-0.6); ABSOLUTE LYMPHOCYTES (AUTO) 3.5 10^3/uL (0.5-4.7); ABSOLUTE MONOCYTES (AUTO) 0.7 10^3/uL (0.1-1.4); ABSOLUTE NEUT (AUTO) 4.5 10^3/uL (1.7-8.2); BASOPHILS % (AUTO) 0.8 % (0-2); HEMATOCRIT 45.9 % (36.0-47.0); HEMOGLOBIN 16.2 g/dL (12.0-15.5); LYMPHOCYTES % (AUTO) 38.9 % (13-45); MEAN CORPUSCULAR HGB CONC 35.3 g/dL (32.0-36.0); MEAN CORPUSCULAR VOLUME 93 fl (80-97); MONOCYTES % (AUTO) 8.2 % (3-13); PLATELET COUNT 196 10^3/uL (150-450); RED BLOOD COUNT 4.92 10^6/uL (3.72-5.28); RED CELL DISTRIBUTION WIDTH 14.9 % (11.5-14.0); SEGMENTED NEUTROPHILS % (AUTO) 50.1 % (42-78); TOTAL CELLS COUNTED % (AUTO) 100 %
[2020-04-22 08:43] LABS: ALBUMIN 4.3 g/dL (3.5-5.0); ALKALINE PHOSPHATASE 80 U/L (38-126); ANION GAP 9 (5-19); ASPARTATE AMINO TRANSFERASE 24 U/L (14-36); BILIRUBIN,DIRECT 0.3 mg/dL (0.0-0.4); BILIRUBIN,TOTAL 0.6 mg/dL (0.2-1.3); BLOOD UREA NITROGEN 11 mg/dL (7-20); CALCIUM 9.1 mg/dL (8.4-10.2); CARBON DIOXIDE 26 mmol/L (22-30); CHLORIDE 108 mmol/L (98-107); CHOLESTEROL 156.49 mg/dL (0-200); GLUCOSE 101 mg/dL (75-110); POTASSIUM 4.1 mmol/L (3.6-5.0); TRIGLYCERIDES 203 mg/dL (<150)
[2020-04-22 08:54] LABS: DIRECT LDL 95 mg/dL (<100)
[2020-04-22 09:00] LABS: VLDL CHOLESTEROL 40.6 mg/dL (10-31)
== END ==
LOC: OD 07:41
PROVIDERS: ATTEND Nurse Practitioner Psychiatric/Mental Health
DX: F31.2 Bipolar disorder, current episode manic severe with psychotic features (principal); Z79.899 Other long term (current) drug therapy
CPT/HCPCS: 36415; 80053; 80061; 80164; 83036; 84436; 84443; 85025

== ENCOUNTER 2020-06-06 10:01 | Emergency (ER) | payer MEDICAID ==
[2020-06-06] MEDS ORDERED: OXYCODONE-ACETAMINOPHEN 5-325 MG TABLET PO ONE (10:44)
--- NOTE | 2020-06-06 11:04 | ER Document Report ---
HPI - HPI Time Seen by Provider: 06/06/20 10:38 Pain Level: 5 Notes: 60-year-old female presented to the emergency department complaint of right knee pain. Patient reports the pain ongoing for the last few months. States she has seen orthopedic provider for this. She may be pending surgery. She reports yesterday she twisted her knee again causing severe pain. She is unable to bear weight. She has not taken any medications today for this pain. - ROS Systems Reviewed and Negative: Yes All other systems reviewed and negative - REPRODUCTIVE Reproductive: DENIES: : - MUSCULOSKELETAL Musculoskeletal: REPORTS: Extremity pain - right knee Past Medical History - General Information source: Patient - Social History Smoking Status: Current Every Day Smoker Chew tobacco use (# tins/day): No Frequency of alcohol use: None Drug Abuse: None Family History: Reviewed & Not Pertinent Patient has homicidal ideation: No - Past Medical History Cardiac Medical History: Denies: Hx Coronary Artery Disease, Hx Heart Attack, Hx Hypertension Pulmonary Medical History: Reports: Hx Bronchitis - hx of, Hx COPD - inhalers Denies: Hx Asthma, Hx Pneumonia Neurological Medical History: Denies: Hx Cerebrovascular Accident, Hx Seizures Renal/ Medical History: Denies: Hx Peritoneal Dialysis Musculoskeletal Medical History: Reports Hx Arthritis - mild Psychiatric Medical History: Reports: Hx Bipolar Disorder, Hx Depression, Hx Schizophrenia Past Surgical History: Reports: Hx Abdominal Surgery, Hx Appendectomy, Hx Section - x4, Hx Cholecystectomy, Hx Gynecologic Surgery, Hx Hysterectomy, Hx Orthopedic Surgery - 2 right ankle, Hx Tonsillectomy - Immunizations Immunizations up to date: Yes Hx Diphtheria, Pertussis, Tetanus Vaccination: No Vertical Provider Document - CONSTITUTIONAL Notes: PHYSICAL EXAMINATION: GENERAL: Well-appearing, well-nourished and in no acute distress. HEAD: Atraumatic, normocephalic. EYES: Pupils equal round extraocular movements intact, conjunctiva are normal. ENT: Nares patent NECK: Normal range of motion LUNGS: No respiratory distress Musculoskeletal: Swelling to right knee, no erythema or heat. Tenderness with palpation. No crepitus or deformity noted. NEUROLOGICAL: Normal speech. PSYCH: Normal mood, normal affect. SKIN: Warm, Dry, normal turgor, no rashes or lesions noted. - INFECTION CONTROL TRAVEL OUTSIDE OF THE [place] IN LAST 30 DAYS: No Course - Re-evaluation Re-evalutation: Knee X-Ray 06/06/20 10:44 IMPRESSION: No acute fracture. Moderate joint effusion. - Vital Signs Vital signs: Temp Pulse Resp BP Pulse Ox 98.7 F 106 H 16 139/69 H 100 06/06/20 10:40 06/06/20 10:05 06/06/20 10:05 06/06/20 10:05 06/06/20 10:05 Discharge - Discharge Clinical Impression: Effusion, right knee Condition: Stable Disposition: HOME, SELF-CARE Additional Instructions: Knee Effusion You have a fluid collection in the knee joint, called an effusion. This fluid build up can occur from irritation of the synovial membrane lining the knee joint or from a more serious injury to the knee. Irritation of the membrane can occur from excessive, repetitive knee activitiy, like kneeling or squatting for extended periods or even just excessive walking, jogging, or skiing. Effusions also can occur with infections in the joint and with some arthritic conditions, especially gout. Fluid collections in these situations are usually yellow in color and either clear or cloudy in appearance. Significant injury to the knee can result in fluid collection which is partly or entirely blood and this condition is known as a hemarthrosis of the knee joint. If the fluid collection is not too large and/or painful, it can be managed conservatively with rest, ice packs, and anti-inflammatory and pain medications as needed. If the fluid collection is large and very painful, the knee joint can be drained (aspirated) by a relatively minor procedure of inserting a needle in the joint and removing some or all of the fluid present. If your knee was aspirated, you should rest it as much as possible for a few days, keep a pressure dressing around the knee and apply ice packs for at least 48 - 72 hours. If there are signs of developing infection such as heat and redness of the knee, fever, etc. you should return immediately for a recheck. Please call Monday morning to schedule an appointment with your orthopedic prov ider for follow-up. Prescriptions: Hydrocodone/Acetaminophen [[place] 5-325 mg Tablet] 1 tab PO Q6HP PRN #12 tablet PRN Reason: For Pain Forms: Return to Work
--- NOTE | 2020-06-06 11:17 | RADIOLOGY REPORT (SQ) ---
EXAM DESCRIPTION: KNEE RIGHT 4 VIEWS IMAGES COMPLETED DATE/TIME: 06/06/2020 11:05 am REASON FOR STUDY: Knee pain, twisted knee COMPARISON: None. NUMBER OF VIEWS: Four views. TECHNIQUE: AP, lateral, and both oblique radiographic images acquired of the right knee. LIMITATIONS: None. FINDINGS: MINERALIZATION: Normal. BONES: No acute fracture or dislocation. No worrisome bone lesions. JOINT: Moderate joint effusion. SOFT TISSUES: No soft tissue swelling. No radio-opaque foreign body. OTHER: No other significant finding. IMPRESSION: No acute fracture. Moderate joint effusion. TECHNICAL DOCUMENTATION: JOB ID: [id number] 2010 [employer]- All Rights Reserved Reading location - IP/workstation name: [email or web address]
[2020-06-06 12:11] VITALS: BP 136/86
== END 2020-06-06 12:10 | disposition home or self-care (01) ==
LOC: ER 10:01
DX: M25.461 Effusion, right knee (principal); M25.561 Pain in right knee; M79.89 Other specified soft tissue disorders; X50.1XXA Overexertion from prolonged static or awkward postures, initial encounter; F17.200 Nicotine dependence, unspecified, uncomplicated; J44.9 Chronic obstructive pulmonary disease, unspecified; Z79.51 Long term (current) use of inhaled steroids
CPT/HCPCS: 99283